=== PATIENT | female | born 1935 | race Caucasian/White ===

== ENCOUNTER 2016-10-18 05:06 | Inpatient (IN) | payer OTHER ==
[2016-09-27 12:57] VITALS: BMI 31.0
--- NOTE | 2016-09-27 13:49 | PAT Medication Instructions ---
Service Date Sep 27, 2016. Current Home Medication List Acetaminophen (Tylenol), 500 MG PO PRN Albuterol Hfa (Ventolin Hfa), 2-4 PUFFS INH Q6H PRN for WHEEZING Brimonidine Tartrate (Alphagan P Oph), 1 DROP OP BID Calcitriol (Rocaltrol Cap), 0.25 MCG PO 3XWEEK Cholecalciferol (Vitamin D3), 1 TAB PO QPM Cranberry (Vaccinium Macrocarp (Cranberry), 500 MG PO QAM Diltiazem Hcl Ext Rel (Tiazac), 120 MG PO QAM Ferrous Sulfate (Kp Ferrous Sulfate), 1 TAB PO QPM Furosemide (Lasix), 40 MG PO QAM Gabapentin (Neurontin), 300 MG PO BID Glipizide (Glipizide Er), 1 TAB PO QAM Insulin Glargine (Lantus), 10 UNITS INJ HS Levothyroxine Sodium (Levothyroxine Sodium), 1 TAB PO QAM Magnesium Oxide (Mag-Ox), 400 MG PO QAM Metoprolol Succ (Toprol Xl) (Toprol-Xl ), 100 MG PO QAM Montelukast Sodium (Montelukast Sodium), 1 TAB PO HS Multivitamin (Multivitamin), 1 TAB PO QPM Pantoprazole (Protonix), 20 MG PO QAM Potassium Chloride Pwd (Klor-Con Pwd), 20 MEQ PO BID Pravastatin (Pravachol ), 40 MG PO HS Prednisone (Prednisone), 5 MG PO QAM Sulfamethoxazole-Trimethoprim (Bactrim Ds 800MG/160MG), 1 TAB PO BID Valsartan (Diovan), 160 MG PO QAM Warfarin Sod (Jantoven), 1.25 MG PO QPM [Lidocaine 5%], 1 DOSE TOP PRN [Nystatin Powd], 1 DOSE TOP TID PRN for de alcholizer Instructions For Your Scheduled Surgery Sulfamethoxazole-Trimethoprim (Bactrim Ds 800MG/160MG), 1 TAB PO BID (to be completed prior to surgery) - Check with surgeon/grocery supervisor/coumadin clinic for instructions: Warfarin Sod (Jantoven), 1.25 MG PO QPM - Hold the following medications 2 weeks prior to surgery: Cranberry (Vaccinium Macrocarp (Cranberry), 500 MG PO QAM - Hold the following medications 24 hours prior to surgery: [Lidocaine 5%], 1 DOSE TOP PRN [Nystatin Powd], 1 DOSE TOP TID PRN for RN - Hold the following medications the morning of surgery: Valsartan (Diovan), 160 MG PO QAM Potassium Chloride Pwd (Klor-Con Pwd), 20 MEQ PO BID Magnesium Oxide (Mag-Ox), 400 MG PO QAM Glipizide (Glipizide Er), 1 TAB PO QAM Ferrous Sulfate (Kp Ferrous Sulfate), 1 TAB PO QPM Furosemide (Lasix), 40 MG PO QAM Calcitriol (Rocaltrol Cap), 0.25 MCG PO 3XWEEK - Take the following medications the morning of surgery with a sip of water: Prednisone (Prednisone), 5 MG PO QAM Pantoprazole (Protonix), 20 MG PO QAM Metoprolol Succ (Toprol Xl) (Toprol-Xl ), 100 MG PO QAM Levothyroxine Sodium (Levothyroxine Sodium), 1 TAB PO QAM Gabapentin (Neurontin), 300 MG PO BID Diltiazem Hcl Ext Rel (Tiazac), 120 MG PO QAM Brimonidine Tartrate (Alphagan P Oph), 1 DROP OP BID Acetaminophen (Tylenol), 500 MG PO PRN (if needed) Albuterol Hfa (Ventolin Hfa), 2-4 PUFFS INH Q6H PRN for WHEEZING (bring with you to hospital morning of surgery; use if needed) . - Take the following medications as scheduled the night before surgery: Potassium Chloride Pwd (Klor-Con Pwd), 20 MEQ PO BID Pravastatin (Pravachol ), 40 MG PO HS Multivitamin (Multivitamin), 1 TAB PO QPM Montelukast Sodium (Montelukast Sodium), 1 TAB PO HS Insulin Glargine (Lantus), 10 UNITS INJ HS Gabapentin (Neurontin), 300 MG PO BID Cholecalciferol (Vitamin D3), 1 TAB PO QPM Brimonidine Tartrate (Alphagan P Oph), 1 DROP OP BID Acetaminophen (Tylenol), 500 MG PO PRN (if needed) Albuterol Hfa (Ventolin Hfa), 2-4 PUFFS INH Q6H PRN for WHEEZING (if needed) If you have any questions please call us at [phone] or [phone] or [phone]
[2016-09-27 14:27] LABS: HEMATOCRIT 32.6 % (37-47); MEAN CELL VOLUME 86.5 fL (80-100); MEAN CORPUSCULAR HEMOGLOBIN 27.9 pg (25-34); MEAN CORPUSCULAR HGB CONC 32.2 g/dl (32-36); MEAN PLATELET VOLUME 9.8 fL (7.4-10.4); PLATELET COUNT 293 K/uL (130-400); RED BLOOD COUNT 3.77 M/uL (4.2-5.4); URINE APPEARANCE CLEAR (CLEAR); URINE BILIRUBIN NEG (NEG); URINE COLOR YELLOW; URINE NITRITE NEG (NEG); URINE SPECIFIC GRAVITY 1.015 (1.000-1.030); UROBILINOGEN NEG (NEG); WHITE BLOOD COUNT 12.32 K/uL (4.8-10.8); ZZUR CULT IF INDIC CLEAN CATCH NO
[2016-09-27 14:40] LABS: INR 2.1 (0.9-1.1); PARTIAL THROMBOPLASTIN RATIO 1.6; PROTHROMBIN TIME (PATIENT) 23.3 SECONDS (9.0-12.0)
--- NOTE | 2016-09-27 14:40 | DIAGNOSTIC IMAGING REPORT ---
CERVICAL SPINE 2 OR 3 VIEWS CLINICAL HISTORY: 80 years-old Female presenting with PREOP, RHEUMATOID ARTHRITIS. TECHNIQUE: Lateral radiographs of the neck were obtained in flexion, neutral, and extension positions. COMPARISON: None. FINDINGS: The C5 vertebral body is only partially seen nonvisualization of the C6 and C7 vertebral bodies on neutral positioning. This limits evaluation. Overall straightening of normal cervical lordosis. Mild vertebral body height loss of C5. Intervertebral disc height loss of C5-6. No significant change in alignment on flexion or extension views with overall limited movement. No change in the predental interval. No dynamic spondylolisthesis. No radiographic evidence of acute fracture or subluxation. No prevertebral soft tissue swelling. IMPRESSION: 1. Straightening of normal cervical lordosis. No subluxation on flexion or extension views. 2. Mild degenerative change at C5-6. Electronically signed by: Sunday Harrell M.D. 09/27/2016 2:38 PM Dictated Date/Time: 09/27/2016 2:34 PM
[2016-09-27 14:41] LABS: MANUAL MICROSCOPIC REQUIRED? NO; REVIEW REQ? NO
[2016-09-27 14:54] LABS: BASO % 0.3 %; BASO ABS # 0.04 K/uL (0-0.2); COMPLETE YES; EOS % 0.7 %; IG% 0.2 %; LYMPH ABS # 1.48 K/uL (1.2-3.4); MONO % 4.3 %; NEUT % 82.5 %
[2016-09-27 15:15] LABS: BUN/CREATININE RATIO 17.2 (10-20); CALCIUM 9.3 mg/dl (8.5-10.1); CREATININE 2.4 mg/dl (0.60-1.20); POTASSIUM 6.1 mmol/L (3.5-5.1)
[2016-09-28 06:56] LABS: ESTIMATED AVERAGE GLUCOSE 186 mg/dl; HA1C FLAG Normal (Normal)
--- NOTE | 2016-10-17 15:26 | HISTORY & PHYSICAL EXAMINATION ---
DATE OF ADMISSION: 10/18/2016 CHIEF COMPLAINT: Left hip pain. HISTORY OF PRESENT ILLNESS: This is an 80-year-old female patient of Dr. Wasserman'neida complaining of chronic left hip pain, longstanding, now progressively getting worse. The patient has failed conservative treatment including the use of Tylenol. She cannot use narcotics and anti-inflammatories due to her kidney disease. She also has failed the use of a cane. The patient has been diagnosed with end-stage osteoarthritis per clinical and radiographic exams. The patient wishes to proceed with a left total hip arthroplasty. PAST MEDICAL HISTORY: Hypertension, hypercholesterolemia, one episode of atrial fibrillation stable now, asthma as a child, sleep apnea with the use of CPAP. She has a history of mini stroke in 1995, diabetes mellitus with insulin, rheumatoid arthritis, osteoarthritis, sciatica, acid reflux, obesity, kidney stones, stage III kidney disease. SOCIAL HISTORY: She was a lifelong smoker, quit in 1993, nondrinker. PAST SURGICAL HISTORY: Hysterectomy, appendectomy and left knee replacement. REVIEW OF SYSTEMS: The patient complains of chronic left hip pain. Otherwise, denies any shortness of breath, chest pain, nausea, vomiting or joint complaints. FAMILY HISTORY: Noncontributory. MEDICATIONS: Bactrim b.i.d., tramadol as needed, calcitriol 0.25 mg daily, ferrous sulfate 325 mg daily, prednisone 5 mg 1-1/2 tablet daily through the end of August and then 1 tablet daily after August, Lidoderm 5% patch topically to affected area as needed, potassium chloride 20 mEq b.i.d., Coumadin 2.5 mg take 1-1/2 tablets daily and as directed by Coumadin clinic, valsartan 320 mg 1/2 tablet daily, Lantus 10 units under the skin at bedtime, glipizide 10 mg 30 minutes before a meal, furosemide 40 mg daily, Pravachol 40 mg at bedtime, diltiazem 120 mg q. daily, cranberry 500 mg daily, Levoxyl 50 mcg daily, Neurontin 300 mg b.i.d., metoprolol 100 mg daily, Protonix 20 mg daily, Singulair 10 mg at bedtime, Nystatin to affected areas 3 times daily topically, Flonase 50 mcg per ACT 2 sprays in each nostril daily, insulin pen daily with Lantus, vitamin B12 100 mcg daily, magnesium 400 mg daily, Alphagan 0.15% ophthalmic solution 1 drop both eyes b.i.d. ALLERGIES: NOVOCAIN, LEVAQUIN, DEMEROL, STEROID SHOTS, lefunomide, NARCOTICS, ORAL NARCOTICS, TORADOL. PHYSICAL EXAMINATION: GENERAL: Well-developed, well-nourished 80-year-old female in no acute distress. She is alert and oriented x3 and pleasant. HEAD, EYES, EARS, NOSE, AND THROAT: Normocephalic, atraumatic. Extraocular motions are intact. Pupils are equal and reactive to light. HEART: Regular rate and rhythm, no murmurs appreciated. LUNGS: Clear. ABDOMEN: Soft, nontender, bowel sounds are present. EXTREMITIES: Left hip reveals pain with passive range of motion as well as log rolling. The patient has 5/5 strength with pain. Neurologically and neurovascularly intact in his left lower extremity. DIAGNOSES: Left hip end-stage osteoarthritis, history of hypertension, hypercholesterolemia, atrial fibrillation that is stable, asthma as a child, sleep apnea with the use of CPAP, history of transient ischemic attack, diabetes mellitus with insulin, rheumatoid arthritis, osteoarthritis, sciatica, acid reflux, obesity, history of kidney stones and stage III kidney disease. PLAN: The patient was advised of her diagnosis. Indications, risks, benefits, and postop course have all been reviewed. The patient wishes to proceed with a left total hip arthroplasty. Necessary consent forms, preoperative testing and clearances will be obtained. [facility]ENTERPrasad
[2016-10-18] VITALS (9 sets, daily range): BP systolic 115–164; BP diastolic 58–84; PULSE 59–81; TEMP 36.2–36.9; O2SAT 93–100; Ht 167.6 cm; Wt 88.8 kg
[~2016-10-18] VITALS: Ht 167.6 cm; Wt 88.8 kg
[~2016-10-18 05:06] MED LIST: ACET-1256 PO; BRIM0.1S OP; CALC0.2510 PO; CHOL20007 PO; CRAN500C2 PO; DILT120C68 PO; DVN/160 PO; FERR1TAB13 PO; FRS/40 PO; GABA-113 PO; GLIP-199 PO; INSDGI INJ; LEVO50TA6 PO; LIDOCAINE 5% TOP; MAGN400T6 PO; METO1TAB69 PO; MONT1TAB5 PO; MULT-506 PO; NYSTATIN POWD TOP; PRAV20TA PO; PRED-301 PO; PRT/20 PO; SULF800T23 PO; VNTHFA/IN INH; WARF2.5T8 PO
[2016-10-18] MEDS ORDERED: HYDROCORTISONE SOD SUCCINATE 100 MG/2 ML VIAL IV SCH (06:00)
[2016-10-18] MEDS ORDERED: CEFAZOLIN 2000 MG/60 ML D5W 60 ML IV SCH (06:00)
[2016-10-18] MEDS ORDERED: ROPIVACAINE 5MG/ML 30 ML 150 MG, BUPIVACAINE/EPINEPHR 0.5% MPF 30 ML, KETAMINE HCL INJ ... INFIL SCH ×5 (06:00)
[2016-10-18] MEDS ORDERED: METOCLOPRAMIDE HCL 10 MG TAB PO SCH (06:00)
[2016-10-18] MEDS ORDERED: FAMOTIDINE 20 MG TAB PO SCH (06:00)
[2016-10-18] MEDS ORDERED: ACETAMINOPHEN 500 MG TAB PO SCH (06:00)
[2016-10-18] MEDS ORDERED: LACTATED RINGER'S 1000ML IV SCH (06:00)
[2016-10-18] MEDS ORDERED: CeleBREX 200 MG CAP PO SCH (06:00)
[2016-10-18] MEDS ORDERED: LACTATED RINGER'S 1000ML 1,000 ML IV SCH (06:00)
[2016-10-18] MEDS ORDERED: GABAPENTIN 300 MG CAP PO SCH (06:00)
[2016-10-18] MEDS ORDERED: BUPIVACAINE 0.5 % 5 MG/1 ML PF 10ML VIAL ONE (06:27)
[2016-10-18 06:30] LABS: PARTIAL THROMBOPLASTIN RATIO 1.1; PROTHROMBIN TIME (PATIENT) 10.6 SECONDS (9.0-12.0)
[2016-10-18] MEDS ORDERED: FENTANYL CITRATE INJ 50 MCG/1 ML 2 ML VIAL ONE (06:50)
[2016-10-18] MEDS ORDERED: MIDAZOLAM HCL 1 MG/ML 2ML VIAL ONE (06:50)
[2016-10-18] MEDS ORDERED: ORTHO JOINT ANESTHETIC ONE (07:03)
[2016-10-18] MEDS ORDERED: POVIDONE-IODINE OP SOLN 30 ML BTL ONE (07:04)
[2016-10-18] MEDS ORDERED: BACITRACIN 50000 UNIT VIAL ONE (07:04)
--- NOTE | 2016-10-18 07:26 | History & Physical Bridge Note ---
H&P Re-Evaluation Bridge Note: I have examined the patient, reviewed the History & Physical and in the interval since the performance of the History & Physical I have noted the following changes of clinical significance: No changes noted
[2016-10-18] MEDS ORDERED: PROPOFOL IV EMULSION 10 MG/ML 20 ML VIAL IV ONE (08:09)
[2016-10-18] MEDS ORDERED: EpHEDrine SULFATE 50MG/5ML SYR ONE (08:09)
[2016-10-18] MEDS ORDERED: ONDANSETRON INJ 2 MG/ML 2 ML VIAL IV PRN (08:45)
[2016-10-18] MEDS ORDERED: HYDROmorphone INJ 1 MG/ML SYR IV PRN (08:45)
[2016-10-18] MEDS ORDERED: ATROPINE SULFATE 0.1 MG/ML 5ML SYR IV PRN (08:45)
[2016-10-18] MEDS ORDERED: EpHEDrine SULFATE INJ 50 MG/ML AMP IV PRN (08:45)
[2016-10-18] MEDS ORDERED: MEPERIDINE HCL 25 MG/ML CARP IV PRN (08:45)
[2016-10-18] MEDS ORDERED: LABETALOL HCL IV 5 MG/ML 20ML IV PRN (08:45)
[2016-10-18] MEDS: FENTANYL CITRATE INJ 50 MCG/1 ML 2 ML VIAL IV PRN ×6 (10:19→10:44)
--- NOTE | 2016-10-18 10:21 | [facility] Post Operative Brief Note ---
Immediate Operative Summary Operative Date Oct 18, 2016. Pre-Operative Diagnosis Left Hip End-Stage Osteoarthritis Post-Operative Diagnosis Left Hip End-Stage Osteoarthritis Procedure(s) Performed Left Total Hip Arthroplasty Surgeon Dr. Wasserman Bar Machine Operator Multiple Spindle Surgeon(s) none Estimated Blood Loss 100 mL Findings djd oa hip impingement Specimens A: Left Femoral Head Drains 2 hemovac Anesthesia spinal sedation Complication(s) None Disposition Recovery Room / PACU
[2016-10-18] MEDS ORDERED: ALUMINUM/MAGNESIUM/SIMETH (MAALOX MAX) 30 ML UDC PO PRN (10:30)
[2016-10-18] MEDS ORDERED: MAGNESIUM HYDROXIDE SUSP 30 ML UDC PO PRN (10:30)
[2016-10-18] MEDS ORDERED: ZOLPIDEM TARTRATE 5 MG TAB PO PRN (10:30)
--- NOTE | 2016-10-18 11:10 | DIAGNOSTIC IMAGING REPORT ---
LEFT PELVIS/UNILATERAL HIP 1 VIEW CLINICAL HISTORY: Left hip osteoarthritis. COMPARISON: None FINDINGS: Alignment of the total left hip arthroplasty is anatomic. There is no periprosthetic fracture or unexpected radiopaque foreign body. Drains and skin amena are present. IMPRESSION: Expected findings following total left hip arthroplasty. Electronically signed by: Ayad Hutchins M.D. 10/18/2016 11:08 AM Dictated Date/Time: 10/18/2016 11:08 AM
--- NOTE | 2016-10-18 11:15 | Anesthesiology Progress Note ---
Anesthesia Post Op Note Date & Time Oct 18, 2016 at 11:15 Vital Signs Pain Intensity: 4 Vital Signs Past 12 Hours Date Time Temp Pulse Resp B/P (MAP) Pulse Ox O2 Delivery O2 Flow Rate FiO2 10/18/16 11:05 36.5 66 15 149/59 100 Nasal Cannula 4 10/18/16 10:55 66 26 137/52 95 Nasal Cannula 4 10/18/16 10:45 62 13 146/66 99 Nasal Cannula 2 10/18/16 10:35 57 14 161/68 97 Nasal Cannula 2 10/18/16 10:25 60 13 177/69 100 Oxymask 10 10/18/16 10:15 36.6 65 16 126/84 100 Oxymask 10 10/18/16 05:50 36.5 59 18 137/58 94 Room Air Notes Mental Status: alert / awake / arousable, participated in evaluation Pt Amnestic to Procedure: Yes Nausea / Vomiting: adequately controlled Pain: adequately controlled Airway Patency, RR, SpO2: stable & adequate BP & HR: stable & adequate Hydration State: stable & adequate Neuraxial Anesthesia: was administered, sensory block is resolving Anesthetic Complications: no major complications apparent
[2016-10-18] MEDS ORDERED: GLUCOSE 40% GEL 15 GM TUBE PO PRN (12:00)
[2016-10-18] MEDS ORDERED: DEXTROSE 50% 50 ML SYR IV PRN (12:00)
[2016-10-18] MEDS ORDERED: GLUCAGON FOR INJ 1 MG VIAL SQ PRN (12:00)
[2016-10-18] MEDS ORDERED: GLUCOSE 10 TABS/TUBE PO PRN (12:00)
[2016-10-18] MEDS: HYDROmorphone INJ 0.5 MG/0.5 ML SYR IV PRN (13:16)
[2016-10-18] MEDS ORDERED: NYSTATIN POWDER 15GM BTL EXT PRN (13:30)
[2016-10-18] MEDS ORDERED: LIDOCAINE HCL 5% OINT 30 GM TUBE EXT PRN (13:30)
[2016-10-18] MEDS: NSS + 20MEQ KCL 1000ML 1,000 ML IV SCH ×2 (13:40→22:37)
[2016-10-18] MEDS: HYDROCORTISONE IV 100 MG in SYRINGE 0 ML IV SCH ×2 (13:40→22:19)
[2016-10-18] MEDS: VALSARTAN 80 MG TAB PO SCH (13:41)
[2016-10-18] MEDS: ACETAMINOPHEN IV 1,000 MG in EMPTY BAG 0 ML IV SCH ×2 (13:41→22:19)
[2016-10-18] MEDS ORDERED: HYDROCORTISONE SOD SUCCINATE 100 MG/2 ML VIAL IM SCH (14:00)
[2016-10-18] MEDS ORDERED: ALBUTEROL HFA 8 GM INHALER INH PRN (14:00)
[2016-10-18] MEDS ORDERED: FUROSEMIDE 40 MG TAB PO SCH (14:00)
[2016-10-18] MEDS: CEFAZOLIN IV 2,000 MG in DEXTROSE 5% 50ML 50 ML IV SCH ×2 (15:57→23:39)
[2016-10-18] MEDS ORDERED: WARFARIN SOD 1.25 MG TAB PO SCH (16:00)
--- NOTE | 2016-10-18 16:31 | Medical Consult ---
Consultation Date of Consultation: Oct 18, 2016. Attending Physician: Moisés Wasserman M.D. History of Present Illness This is a 80yo F with a PMH of paroxysmal A fib (on coumadin), DM II, asthma, CKD III, HTN and OA who is POD#0 s/p L total hip arthroplasty. Patient with longstanding osteoarthritis, which failed conservative treatment measures. Had L ISMAEL performed by Dr. Waldron this morning. Patient is doing well post operatively. Denies lightheadedness, headache, palpitations, CP, SOB, N/V or weakness of extremities. States that pain is well controlled with current regimen. Past Medical/Surgical History Medical Problems: (1) Asthma Status: Chronic (2) Cardiomyopathy Status: Chronic (3) Carotid artery disease Status: Chronic (4) CKD (chronic kidney disease), stage III Status: Chronic (5) DM type 2 (diabetes mellitus, type 2) Status: Chronic (6) GERD (gastroesophageal reflux disease) Status: Chronic (7) GERD (gastroesophageal reflux disease) Status: Chronic (8) HTN (hypertension) Status: Chronic (9) Hyperlipidemia Status: Chronic (10) Hypothyroidism Status: Chronic (11) Hypothyroidism Status: Chronic (12) Multinodular goiter Status: Chronic (13) RASHIDA on CPAP Status: Chronic (14) Osteoarthritis Status: Chronic (15) Paroxysmal atrial fibrillation Status: Chronic (16) 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 (17) PMR (polymyalgia rheumatica) Status: Chronic (18) Pulmonary nodules Status: Chronic (19) Rheumatoid arthritis Status: Chronic (20) Transient cerebral ischemia Status: Chronic Surgical Problems: (1) H/O dilation and curettage Status: Chronic (2) History of carpal tunnel surgery Status: Chronic (3) History of hysterectomy Status: Chronic (4) S/P appendectomy Status: Chronic (5) S/P breast lumpectomy Status: Chronic (6) S/p partial removal of thymus gland Status: Chronic (7) S/P tonsillectomy and adenoidectomy Status: Chronic (8) Status post total knee replacement, left Status: Chronic Family History non contributory Social History Smoking Status: Former Smoker Allergies Coded Allergies: Procaine (Verified Allergy, Intermediate, FACIAL SWELLING, 10/18/16) Cortisone (Verified Allergy, Unknown, FACIAL FLUSHING WITH INJECTIONS, ) Ketorolac Tromethamine (Verified Allergy, Unknown, UNKNOWN, 10/18/16) Levofloxacin (Verified Allergy, Unknown, UNKNOWN, 10/18/16) Acetaminophen (Verified Adverse Reaction, Mild, NAUSEA AND VOMITING-PT DENIES, 10/18/16) Hydrocodone (Verified Adverse Reaction, Mild, NAUSEA AND VOMITING, 10/18/16 ) Meperidine (Verified Adverse Reaction, Mild, NAUSEA AND VOMITING/HEADACHE , 10/18/16) Oxycodone (Verified Adverse Reaction, Mild, NAUSEA AND VOMITING, 10/18/16) Home Medications Reported Home Medications Medications Dose Route/Sig Max Daily Dose Days Date Category Dose Instructions [Nystatin Powd] 1 Dose TOP TID PRN 09/27/16 Reported Vitamin D3 (Cholecalciferol) 2,000 Unit Tab 1 Tab PO QPM 90 09/27/16 Reported Multivitamin (Multivitamins) Tab 1 Tab PO QPM 09/27/16 Reported Ventolin Hfa (Albuterol) 200 Puffs/88167 Mcg Aers 2-4 Puffs INH Q6H PRN 09/27/16 Reported Montelukast Sodium 10 Mg Tab 1 Tab PO HS 90 09/27/16 Reported Protonix (Pantoprazole Sodium) 20 Mg Tab 20 Mg PO QAM 09/27/16 Reported Neurontin (Gabapentin) 300 Mg Cap 300 Mg PO BID 09/27/16 Reported Levothyroxine Sodium 50 Mcg Tab 1 Tab PO QAM 90 09/27/16 Reported Alphagan P Oph (Brimonidine Tartrate) 0.1 % Vicenta 1 Drop OP BID 09/27/16 Reported Cranberry (Cranberry (Vaccinium Macrocarp) 500 Mg Cap 500 Mg PO QAM 09/27/16 Reported Tiazac (Diltiazem HCl) 120 Mg Capcr 120 Mg PO QAM 09/27/16 Reported Pravachol (Pravastatin Sodium) 20 Mg Tab 40 Mg PO HS 09/27/16 Reported Lasix (Furosemide) 40 Mg Tab 20 Mg PO QAM 09/27/16 Reported per pt, pcp told her to take 40mg when feet look swollen Glipizide Er (Glipizide) 10 Mg Tab 1 Tab PO QAM 90 09/27/16 Reported Lantus (Insulin Glargine) 100 Unit/Ml Inj 10 Units INJ HS 09/27/16 Reported Toprol-Xl (Metoprolol Succinate) 100 Mg Tabcr 100 Mg PO QAM 09/27/16 Reported Diovan (Valsartan) 160 Mg Tab 160 Mg PO QAM 09/27/16 Reported Mag-Ox (Magnesium Oxide) 400 Mg Tab 400 Mg PO QAM 09/27/16 Reported Jantoven (Warfarin Sodium) 2.5 Mg Tab 1.25 Mg PO QPM 09/27/16 Reported [Lidocaine 5%] 1 Dose TOP PRN 09/27/16 Reported Prednisone 5 Mg Tab 5 Mg PO QAM 09/27/16 Reported Kp Ferrous Sulfate (Ferrous Sulfate) 325 Mg Tab 1 Tab PO QPM 30 09/27/16 Reported Rocaltrol Cap (Calcitriol) 0.25 Mcg Cap 0.25 Mcg PO 3XWEEK 09/27/16 Reported Saturday AM Tylenol (Acetaminophen) 500 Mg Tab 500 Mg PO PRN 09/27/16 Reported Current Inpatient Medications Current Inpatient Medications Medications (Trade) Dose Ordered Sig/Santos Route Start Time Stop Time Status Last Admin Dose Admin Cefazolin Sodium 60 ml @ 100 mls/hr PREOP IV 10/18/16 06:00 10/18/16 18:00 10/18/16 07:37 100 MLS/HR Acetaminophen (Tylenol Tab) 1,000 mg PREOP PO 10/18/16 06:00 10/18/16 18:00 10/18/16 06:16 1,000 MG Celecoxib (CeleBREX CAP) 200 mg PREOP PO 10/18/16 06:00 10/18/16 18:00 Future Hold Famotidine (Pepcid Tab) 20 mg PREOP PO 10/18/16 06:00 10/18/16 18:00 10/18/16 06:26 20 MG Gabapentin (Neurontin Cap) 300 mg PREOP PO 10/18/16 06:00 10/18/16 18:00 Metoclopramide HCl (Reglan Tab) 10 mg PREOP PO 10/18/16 06:00 10/18/16 18:00 10/18/16 06:17 10 MG Hydrocortisone Sodium Succinate (Solu-Cortef IV) 100 mg PREOP IV 10/18/16 06:00 10/18/16 18:00 10/18/16 07:20 100 MG Acetaminophen 1000 mg/Empty Bag 100 ml @ 400 mls/hr Q8H IV 10/18/16 14:00 10/19/16 13:59 10/18/16 13:41 400 MLS/HR Magnesium Hydroxide (Milk Of Magnesia Susp) 30 ml Q6H PRN PO 10/18/16 10:30 11/17/16 10:29 Docusate Sodium (coLACE CAP) 100 mg BID PO 10/18/16 21:00 11/17/16 20:59 Diphenhydramine HCl (Benadryl Cap) 25 mg Q8H PRN PO 10/18/16 10:30 11/17/16 10:29 Al Hydrox/Mg Hydrox/Simethicone (Maalox Max Susp) 15 ml Q4H PRN PO 10/18/16 10:30 11/17/16 10:29 Zolpidem Tartrate (Ambien Tab) 5 mg HSZ PRN PO 10/18/16 10:30 11/17/16 10:29 Ondansetron HCl (Zofran Inj) 4 mg Q6H PRN IV 10/18/16 10:30 11/17/16 10:29 Pantoprazole Sodium (Protonix Tab) 40 mg QAM PO 10/19/16 09:00 11/18/16 08:59 Cefazolin Sodium 2000 mg/Dextrose 60 ml @ 100 mls/hr Q8H IV 10/18/16 16:00 10/19/16 00:35 10/18/16 15:57 100 MLS/HR Tapentadol (Nucynta Er Tab) 50 mg BID PO 10/18/16 21:00 11/17/16 20:59 Diltiazem HCl (TIAzac CAP) 120 mg QAM PO 10/19/16 09:00 11/18/16 08:59 Gabapentin (Neurontin Cap) 300 mg BID PO 10/18/16 21:00 11/17/16 20:59 Levothyroxine Sodium (Synthroid Tab) 50 mcg DAILYBB PO 10/19/16 06:00 11/18/16 05:59 Magnesium Oxide (Mag-Ox Tab) 400 mg QAM PO 10/19/16 09:00 11/18/16 08:59 Metoprolol Succinate (Toprol Xl Tab) 100 mg QAM PO 10/19/16 09:00 11/18/16 08:59 Montelukast Sodium (Singulair Tab) 10 mg HS PO 10/18/16 21:00 11/17/16 20:59 Multivitamins (Multivitamin Tab) 1 tab QAM PO 10/19/16 09:00 11/18/16 08:59 Pravastatin Sodium (Pravachol Tab) 40 mg HS PO 10/18/16 21:00 11/17/16 20:59 Prednisone (PredniSONE TAB) 5 mg QAM PO 10/19/16 09:00 11/18/16 08:59 Valsartan (Diovan Tab) 160 mg QAM PO 10/18/16 14:00 11/17/16 13:59 10/18/16 13:41 160 MG Warfarin Sodium (Coumadin Tab) 1.25 mg DAILY@1600 PO 10/18/16 16:00 11/17/16 15:59 10/18/16 15:57 1.25 MG Miscellaneous Information (Order Awaiting Action) 1 ea QS N/A 10/18/16 16:00 11/17/16 15:59 Ferrous Sulfate (Feosol Tab) 325 mg QDD PO 10/18/16 17:45 11/17/16 17:44 Lidocaine HCl (Xylocaine Oint 5%) 1 appln DAILY PRN EXT 10/18/16 13:30 11/17/16 13:29 Nystatin (Mycostatin Powder) 1 appln TID PRN EXT 10/18/16 13:30 11/17/16 13:29 Insulin Aspart (novoLOG ASPART) SLIDING SCALE If C... ACHS SC 10/18/16 17:15 11/17/16 17:14 Glucose (Glucose 40% Gel) 15-30 GRAMS 15 GRAMS... UD PRN PO 10/18/16 12:00 11/17/16 11:59 Glucose (Glucose Chew Tab) 4-8 Tablets 4 Tabl... UD PRN PO 10/18/16 12:00 11/17/16 11:59 Dextrose (Dextrose 50% 50ML Syringe) 25-50ML OF 50% DW IV FOR... UD PRN IV 10/18/16 12:00 11/17/16 11:59 Glucagon (Glucagon Inj) 1 mg UD PRN SQ 10/18/16 12:00 11/17/16 11:59 Hydromorphone HCl (Dilaudid Inj) 0.5 mg Q4HWA PRN IV 10/18/16 12:30 11/01/16 12:29 10/18/16 13:16 0.5 MG Tapentadol (Nucynta Tab) . Q4H PRN PO 10/18/16 12:30 11/17/16 12:29 Potassium Chloride/Sodium Chloride 1,000 ml @ 100 mls/hr Q10H IV 10/18/16 13:00 11/17/16 12:59 10/18/16 13:40 100 MLS/HR Hydrocortisone Sodium Succinate 100 mg/Syringe 2 ml @ 4 mls/min Q8 IV 10/18/16 14:00 11/17/16 13:59 10/18/16 13:40 4 MLS/MIN Furosemide (Lasix Tab) 20 mg QAM PO 10/19/16 09:00 11/18/16 08:59 Albuterol (Ventolin Hfa Inhaler) 2 puffs Q6H PRN INH 10/18/16 14:00 11/17/16 13:59 Calcitriol (Rocaltrol Cap) 0.25 mcg DAILY PO 10/19/16 09:00 11/18/16 08:59 Review of Systems Constitutional- no fever; no weight loss Eyes- no acute visual changes ENT- no sinus drainage; no pharyngitis Pulmonary- no cough, no wheezing, no shortness of breath Cardiac- no chest pain, no palpitations, no orthopnea, no dependent edema GI- no nausea, no vomiting, no diarrhea, no melena, no hematochezia - no dysuria, no hematuria Musculoskeletal- (+) right hip pain Derm- no rashes, no new skin lesions, no changing skin lesions Hematologic- no unusual bruising, no unusual bleeding Lymphatics- no adenopathy Endocrine- no polyuria or polydipsia; no heat or cold intolerance Neuro- no headaches, no focal neurologic symptoms Psych- no anxiety, no depression Physical Exam Date Time Temp Pulse Resp B/P (MAP) Pulse Ox O2 Delivery O2 Flow Rate FiO2 10/18/16 15:00 36.3 79 20 115/64 (81) 100 Nasal Cannula 2.0 10/18/16 14:30 36.2 70 18 138/68 (91) 99 Nasal Cannula 2.0 10/18/16 13:34 36.5 72 19 152/82 (105) 99 Nasal Cannula 2.0 10/18/16 12:34 36.4 75 19 152/82 (105) 99 Nasal Cannula 2.0 10/18/16 12:08 36.2 73 20 154/84 (107) 100 Nasal Cannula 2.0 10/18/16 11:30 36.3 66 18 164/79 (107) 100 Nasal Cannula 2.0 10/18/16 11:30 100 Nasal Cannula 2.0 10/18/16 11:30 Nasal Cannula 2.0 10/18/16 11:15 71 23 164/67 100 Nasal Cannula 4 10/18/16 11:05 36.5 66 15 149/59 100 Nasal Cannula 4 10/18/16 10:55 66 26 137/52 95 Nasal Cannula 4 10/18/16 10:45 62 13 146/66 99 Nasal Cannula 2 10/18/16 10:35 57 14 161/68 97 Nasal Cannula 2 10/18/16 10:25 60 13 177/69 100 Oxymask 10 10/18/16 10:15 36.6 65 16 126/84 100 Oxymask 10 10/18/16 05:50 36.5 59 18 137/58 94 Room Air General Appearance: WD/WN (Resting comfortably in bed. SCDs in place. Conversational. ), no apparent distress Head: normocephalic, atraumatic Eyes: normal inspection ENT: normal ENT inspection, hearing grossly normal Neck: supple, no adenopathy, thyroid normal, trachea midline Respiratory/Chest: chest non-tender, lungs clear, normal breath sounds, no respiratory distress, no accessory muscle use Cardiovascular: regular rate, rhythm, no murmur, normal peripheral pulses Abdomen/GI: normal bowel sounds, non tender, soft, no organomegaly Back: normal inspection Extremities/Musculoskelatal: normal inspection (L hip with clean/dry bandage in place. Wound suction in place with sanginous fluid visualized.), no calf tenderness, normal capillary refill, + swelling (Trace edema of bilateral LE ( chronic)) Neurologic/Psych: no motor/sensory deficits, alert, normal mood/affect, oriented x 3 Skin: normal color, warm/dry Laboratory Results Last 24 Hours Test 10/18/16 05:34 10/18/16 05:54 10/18/16 10:17 Bedside Glucose 110 mg/dl 173 mg/dl Prothrombin Time 10.6 SECONDS Prothromb Time International Ratio 1.0 Activated Partial Thromboplast Time 28.7 SECONDS Partial Thromboplastin Ratio 1.1 Assessment & Plan This is a 80yo F with a PMH of paroxysmal A fib (on coumadin), DM II, asthma, CKD III, HTN and OA who is POD#0 s/p L total hip arthroplasty. L Hip osteoarthritis s/p L Total hip arthroplasty: -POD#[address] Wasserman -Pt is doing well post-operatively -Per ortho for pain control, wound care, anticoagulation and activities -Monitor H&H, continue incentive spirometry, PT/OT when appropriate A fib (on coumadin): -Rate controlled. Continue beta christen -Pt held coumadin since 10/12 prior to surgery -Per ortho, comfortable restarting coumadin this evening -Will check INR in AM DM II: -Hold home meds -SSI while in-patient -BG checks Q4; monitor Asthma: -Stable -Continue home inhalers as needed CKD III: -Stable -Avoid nephrotoxic agents -Check BMP in AM HTN: -Stable -Continue valsartan, diltiazem, metoprolol DONIS: -History of DONIS -Continue iron supplements -Monitor H/H RASHIDA: -Brought CPAP from home Hypothyroidism: -Continue synthroid DVT Ppx: SCDs, on coumadin Code status: FULL Dispo: Per ortho Thank you for this consultation. We will follow the patient with you during their hospital stay. You can reach a [facility]/10 via pager @ [phone]. ATTENDING ADDENDUM care coordinated with SONNY Hardwick delayed entry date of service as noted above please refer to her notes for full details, I agree with her notes patient seen and examined, records reviewed by myself as well on exam, patient seen laying in bed comfortable states pain under control denies chest pain, dyspnea, dizziness, nausea no other symptoms VS noted and reviewed oriented x 3, not in distress, speaks in sentences with no effort nor accessory muscle use normal rate, regular rhythm, no murmurs clear breath sounds bilaterally non distended, soft, nontender no bipedal edema, erythema, warmth no neuro deficits INR 1.1 ASSESSMENT/PLAN> POST OP RIGHT HIP SURGERY - stable overall monitor Hg CHRONIC A FIB - coumadin ok to be resumed per Ortho CHRONIC PREDNISONE USE - on Hydrocortisone IV will taper other diagnoses and plan of care as per SONNY Hardwick's notes Rodrigo Lake MD
[2016-10-18] MEDS: ONDANSETRON INJ 2 MG/ML 2 ML VIAL IV PRN (17:02)
--- NOTE | 2016-10-18 18:53 | [facility] Operative Report ---
Operative Report Operative Date Oct 18, 2016. Pre-Operative Diagnosis Left Hip End-Stage Osteoarthritis Post-Operative Diagnosis same Procedure(s) Performed Left total hip arthroplasty Surgeon Dr. Wasserman Gill Box Operator Surgeon(s) none Estimated Blood Loss 100 mL Findings Advanced osteoarthritis left hip with significant acetabular bone spurs causing significant impingement with pincer type impingement. Specimens A: Left Femoral Head Drains 2 hemovac Anesthesia spinal sedation Complication(s) None Disposition Recovery Room / PACU Indications Failed conservative management advanced osteoarthritis left hip Description of Procedure Patient was taken to the operating room and anesthetized under spinal anesthesia. Patient was placed supine on the operating table. Exam of the involved extremity demonstrated that the patient only had hip flexion and 90 and had no internal rotation of hip. Patient had shortening by about 5 mm.. The Patient was placed on a sacral pad the involved leg was placed on a foot pump to flex knee 90 and hip 60. A Jimenez-type approach was performed to the left hip. A longitudinal lateral incision was made over the left hip. The skin was incised sharply. The fat was divided down to the fascia. Subcutaneous bleeders are cauterized. The Trochanter bursa was resected. There was some trochanteric bursitis that appeared to be chronic. The gluteus medius was noted to be intact. A split was made in the gluteus medius muscle between the anterior 40% and posterior 60%. The minimus was divided longitudinally reflected off the underlying capsule. The capsule was incised down to the hip joint. Intra-articular findings demonstrated advanced osteoarthritis with large osteophytes most notable anterior medial superior but also some inferior. . An incision was made through the gluteus medius leaving a cuff of tendon for repair on the greater trochanter. The vastus lateralis was split longitudinally for about 3 cm. A muscular capsular flap was elevated off the hip. The hip was dislocated with use of bone out with flexion and external rotation. It was somewhat difficult to dislocate the hip due to the rimming osteophytes. The femoral neck cut was made approximately 15 mm proximal to the lesser trochanter in neutral anteversion. Head and neck fragment were removed. The femoral head demonstrated osteoarthritic changes but no major eburnated bone but some femoral neck osteophytes.. A self- retaining superior tractor was impacted into the ilium and a blunt Carina retractor was placed anteriorly a double angled inferior retractor was placed on the ishium. The acetabulum demonstrated no major acetabular wear but large rimming osteophytes.. The acetabular labrum was resected all osteophytes were resected soft tissue mass of her fossa was resected. An intracapsular release was performed. Some the capsule was resected for exposure. The first reamer was used to medialize reaming to the inner table and then sequential reamers for the acetabulum were used in 2 mm increments up to a size 52 mm diameter. I used the [employer] total hip arthroplasty system using a PSL type cup. Trial reduction demonstrated a 52 millimeter cup was the appropriate size and fit. The placement of the final implant was performed after irrigating the acetabulum with antibiotic solution with pulsatile lavage. The position of the cup was approximately 15 anteversion 45 abduction. Good fixation was performed. 2 screws were placed in the posterior superior quadrant for further fixation through the cup. The acetabular liner was impacted into position. The Trident X3 Poly 10 36 mm E acetabular liner was used. Retractors removed and attention was taken to the femur. The femur was exposed with flexion external rotation. Canal reamer was used followed by sequential broaches up to a size 7. This had a good fit and fill. Trial reduction was performed on 132 neck angle based on preoperative templating. A -5 neck length gave equal leg lengths and stable range of motion through full flexion flexion adduction and internal rotation and extension and external rotation. The trials removed and after irrigation again and the final implant was impacted which was the Accolade 2 size 7 stem with 132 neck angle. The Biolox 36 mm ceramic head size was used. After final implants replaced the reduction was noted to be stable. 2 drains were placed deep. These were brought out laterally and connected to Hemovac. The minimus was closed with interrupted [id number] # 1 Vicryl sutures. The medius was closed with transosseous #5 FiberWire sutures using Rafi Moses stitch technique. Lateral row soft tissue repair was performed with figure of 8 #2 FiberWire sutures. The medius split was closed with interrupted [id number] #1 Vicryl sutures. The vastus lateralis was closed with interrupted figure minimal Vicryl sutures. The fascia master was closed with interrupted figure of 8 number 1 Vicryl sutures. The fat was closed with large needle #2 Vicryl sutures to close the space followed by 2 -0 Vicryl sutures.. Skin was closed with amena sterile dressings were applied. The patient tolerated procedure well. I attest to the content of the Intraoperative Record and any orders documented therein. Any exceptions are noted below.
[2016-10-18] MEDS: FERROUS SULFATE 325 MG TAB PO SCH (19:34)
[2016-10-18] MEDS: INSULIN ASPART 100 UNITS/ML 3 ML PEN SC SCH ×2 (19:39→22:37)
[2016-10-18] MEDS: TAPENTADOL ER 50 MG TABCR PO SCH (21:00)
[2016-10-18] MEDS: MONTELUKAST SOD 10 MG TAB PO SCH (22:18)
[2016-10-18] MEDS: DOCUSATE SODIUM 100 MG CAP PO SCH (22:18)
[2016-10-18] MEDS: PRAVASTATIN SOD 20 MG TAB PO SCH (22:19)
[2016-10-18] MEDS: GABAPENTIN 300 MG CAP PO SCH (22:20)
[2016-10-18] MEDS ORDERED: INSULIN GLARGINE SOLOSTAR 100 UNITS/ML 3 ML PEN SQ ONE (22:25)
[2016-10-19] VITALS (8 sets, daily range): BP systolic 126–150; BP diastolic 56–86; PULSE 67–83; TEMP 36.6–36.8; O2SAT 96–100
[2016-10-19] MEDS: ACETAMINOPHEN IV 1,000 MG in EMPTY BAG 0 ML IV SCH (05:48)
[2016-10-19] MEDS: HYDROCORTISONE IV 100 MG in SYRINGE 0 ML IV SCH ×2 (05:48→13:57)
[2016-10-19] MEDS: LEVOTHYROXINE 50 MCG TAB PO SCH (05:48)
[2016-10-19 05:54] LABS: HEMATOCRIT 29.2 % (37-47); MEAN CELL VOLUME 87.2 fL (80-100); MEAN CORPUSCULAR HEMOGLOBIN 27.8 pg (25-34); MEAN CORPUSCULAR HGB CONC 31.8 g/dl (32-36); MEAN PLATELET VOLUME 9.4 fL (7.4-10.4); PLATELET COUNT 232 K/uL (130-400); RED BLOOD COUNT 3.35 M/uL (4.2-5.4); WHITE BLOOD COUNT 14.98 K/uL (4.8-10.8)
[2016-10-19 06:02] LABS: INR 1.1 (0.9-1.1); PROTHROMBIN TIME (PATIENT) 11.3 SECONDS (9.0-12.0)
[2016-10-19 06:41] LABS: BUN/CREATININE RATIO 13.8 (10-20); CALCIUM 8.3 mg/dl (8.5-10.1); CREATININE 1.5 mg/dl (0.60-1.20); POTASSIUM 4.3 mmol/L (3.5-5.1)
--- NOTE | 2016-10-19 08:10 | Anesthesiology Progress Note ---
Anesthesia Post Op Note Date & Time Oct 19, 2016 at 08:10 Vital Signs Vital Signs Past 12 Hours Date Time Temp Pulse Resp B/P (MAP) Pulse Ox O2 Delivery O2 Flow Rate FiO2 10/19/16 07:30 36.6 83 16 140/86 (104) 97 Room Air 10/19/16 03:27 36.8 81 18 147/68 (94) 100 CPAP 10/18/16 23:39 Room Air 10/18/16 23:15 36.9 81 18 132/60 (84) 98 CPAP Notes Mental Status: alert / awake / arousable, participated in evaluation Pt Amnestic to Procedure: Yes Nausea / Vomiting: adequately controlled Pain: adequately controlled Airway Patency, RR, SpO2: stable & adequate BP & HR: stable & adequate Hydration State: stable & adequate Neuraxial Anesthesia: was administered, sensory block resolved Anesthetic Complications: no major complications apparent
--- NOTE | 2016-10-19 08:19 | Orthopedic Progress Note ---
Orthopedic Progress Note Date of Service Oct 19, 2016. Subjective Post OP Day: 1 Reports: feeling well, Denies: chest pain, SOB, nausea / vomiting, light headedness, calf pain Objective calves soft nontender, N/V intact, hip located, dressing C/D/I (SILVERLON), A&O x3, toes mobile, hemovac drainage (250/150CC PER SHIFT) Date Time Temp Pulse Resp B/P (MAP) Pulse Ox O2 Delivery O2 Flow Rate FiO2 10/19/16 07:30 36.6 83 16 140/86 (104) 97 Room Air 10/19/16 03:27 36.8 81 18 147/68 (94) 100 CPAP 10/18/16 23:39 Room Air 10/18/16 23:15 36.9 81 18 132/60 (84) 98 CPAP 10/18/16 19:18 36.5 79 16 146/75 (98) 93 Room Air 10/18/16 15:30 Room Air 10/18/16 15:00 36.3 79 20 115/64 (81) 100 Nasal Cannula 2.0 10/18/16 14:30 36.2 70 18 138/68 (91) 99 Nasal Cannula 2.0 10/18/16 13:34 36.5 72 19 152/82 (105) 99 Nasal Cannula 2.0 10/18/16 12:34 36.4 75 19 152/82 (105) 99 Nasal Cannula 2.0 10/18/16 12:08 36.2 73 20 154/84 (107) 100 Nasal Cannula 2.0 10/18/16 11:30 36.3 66 18 164/79 (107) 100 Nasal Cannula 2.0 10/18/16 11:30 100 Nasal Cannula 2.0 10/18/16 11:30 Nasal Cannula 2.0 10/18/16 11:15 71 23 164/67 100 Nasal Cannula 4 10/18/16 11:05 36.5 66 15 149/59 100 Nasal Cannula 4 10/18/16 10:55 66 26 137/52 95 Nasal Cannula 4 10/18/16 10:45 62 13 146/66 99 Nasal Cannula 2 10/18/16 10:35 57 14 161/68 97 Nasal Cannula 2 10/18/16 10:25 60 13 177/69 100 Oxymask 10 10/18/16 10:15 36.6 65 16 126/84 100 Oxymask 10 Laboratory Results 24 Hours: Test 10/19/16 05:27 Hematocrit 29.2 % Hemoglobin 9.3 g/dL Prothromb Time International Ratio 1.1 Prothrombin Time 11.3 SECONDS Assessment & Plan Assessment: POD#1 SP LEFT ISMAEL Inhouse Planning Pain Management: PO Tylenol, other (NUCYNTA) Discharge Planning Discharge Planning: home with home health ([facility] WITH [facility] ON SATURDAY.)
[2016-10-19] MEDS: DOCUSATE SODIUM 100 MG CAP PO SCH ×2 (08:39→20:38)
[2016-10-19] MEDS: MAGNESIUM OXIDE 400 MG TAB PO SCH (08:40)
[2016-10-19] MEDS: VALSARTAN 80 MG TAB PO SCH (08:40)
[2016-10-19] MEDS: MULTIVITAMIN TAB PO SCH (08:41)
[2016-10-19] MEDS: TAPENTADOL ER 50 MG TABCR PO SCH ×2 (08:42→20:48)
[2016-10-19] MEDS: GABAPENTIN 300 MG CAP PO SCH ×2 (08:42→20:38)
[2016-10-19] MEDS: PANTOprazole SOD 40 MG TAB PO SCH (08:43)
[2016-10-19] MEDS: CALCITRIOL 0.25 MCG CAP PO SCH (08:44)
[2016-10-19] MEDS: DILTIAZEM HCL 120 MG EXT REL CAP PO SCH (08:45)
[2016-10-19] MEDS: METOPROLOL SUCC 50MG EXT REL TAB PO SCH (08:46)
[2016-10-19] MEDS: NSS + 20MEQ KCL 1000ML 1,000 ML IV SCH (09:00)
[2016-10-19] MEDS ORDERED: NON-FORMULARY MEDICATION (Pantoprazole (Protonix) 20 MG) PO SCH (09:00)
[2016-10-19] MEDS ORDERED: FUROSEMIDE 20 MG TAB PO SCH (09:00)
[2016-10-19] MEDS: INSULIN ASPART 100 UNITS/ML 3 ML PEN SC SCH ×4 (09:11→20:48)
[2016-10-19] MEDS ORDERED: NURSING VERBAL MED ORDER ONE (09:30)
[2016-10-19] MEDS: TAPENTADOL HCL 50 MG TAB PO PRN (12:09)
[2016-10-19] MEDS ORDERED: FUROSEMIDE 20 MG TAB PO ONE (14:37)
--- NOTE | 2016-10-19 14:52 | Discharge Instructions ---
Discharge Instructions Date of Service Oct 19, 2016. Admission Reason for Admission: Left Hip Osteoarthritis Discharge Discharge Diagnosis / Problem: sp left zoran Discharge Goals Goal(s): Decrease discomfort, Improve function, Increase independence Activity Recommendations Activity Limitations: per Instructions/Follow-up section . Instructions / Follow-Up Instructions / Follow-Up ACTIVITY RECOMMENDATIONS: SELF CARE INSTRUCTIONS AFTER TOTAL HIP REPLACEMENT Until the incision and soft tissues around your hip have healed, there is a possibility that the hip prosthesis could dislocate. A. Observe the following precautions to prevent dislocation: 1. Don't bend your hip greater than 90 degrees. 2. Avoid crossing your legs or ankles while standing or lying. 3. Sit with your feet placed 6 inches apart. 4. When sitting, keep your knees below your hips. Sit on a firm surface, avoid deep, soft chairs and couches. Use an elevated toilet seat in the bathroom. 5. Don't bend over at the waist. Use a long handled shoehorn and a sock aid to help you put on your shoes and socks. A health care liaison can help you potato picker objects that are too high or too low to reach. 6. Keep car riding to a minimum for at least one month after surgery. B. Your balance may be shaky for a while. Use crutches or a walker until directed by your doctor. C. Use hand rails when walking on stairs. D. Wear low heeled shoes with non-slip soles. E. Be sure that your floors are free of things that could trip you - throw rugs , electrical cords, small objects. Avoid wet and waxed floors, especially with crutches and canes. F. Try to walk several times a day with rest periods between. G. Continue with all the exercises taught to you in the hospital. Again, make walking a part of your daily routine. SPECIAL CARE INSTRUCTIONS: VERY IMPORTANT TO READ AND REVIEW A. You may still be at risk for phlebitis and blood clots. 1. Wear surgical stockings (GIO hose) for 2 weeks after surgery to improve circulation and reduce swelling. 3. High risk patients may be prescribed a stronger blood thinner if necessary. 4. If you are on Coumadin normally, your family doctor/polystyrene bead molder should monitor your blood work. Expect a phone call the day of or the day after bloodwork is drawn to adjust your dosage. RESUME COUMADIN, PLEASE FOLLOW WITH NORMAL COUMADIN CLINIC. B. You must take antibiotics before having dental work, bladder, bowel and other surgery. Your doctor will provide you with a permanent card to carry describing precautions. C. Call [facility] if you have a fever, redness or swelling around the incision, cloudy drainage from incision, or sudden increase in pain in your hip, not relieved by your regular pain medication. D. Please call the office at if you have any concerns or questions about your operation or recovery. * YOU MAY SHOWER, NO TUB BATHS UNTIL CLEARED BY YOUR DOCTOR. * WEAR GIO HOSE 20 HOURS PER DAY FOR 2 WEEKS. * YOU SHOULD USE A WALKER OR CRUTCHES FOR 2-4 WEEKS. THIS WILL HELP PREVENT STRAIN ON YOUR HIP MUSCLE AND ALLOW IT TO HEAL PROPERLY. YOU MAY WEAN TO A CANE TOLERATED. * MOST PATIENTS WILL HAVE HOME NURSING FOR THERAPY. IF YOU DECIDE TO DO OUTPATIENT PHYSICAL THERAPY, PLEASE SCHEDULE THIS 3 TIMES PER WEEK. * YOU MAY HAVE A LARGE, BAND-GABRIELLE LIKE DRESSING (SILVERON). THIS WILL REMAIN ON YOUR INCISION FOR 7 DAYS, THEN CAN BE REMOVED. IF INCISION IS LEAKING THROUGH DRESSING, PLEASE CALL THE OFFICE . FOLLOW UP VISIT: If appointment is not already scheduled: Please call [facility] to make a follow-up appointment for 2 weeks after your surgery at . Current Hospital Diet Patient's current hospital diet: Diabetes Type 2 Diet Discharge Diet Recommended Diet: Regular Diet Procedures Procedures Performed: Left Total Hip Arthroplasty Pending Studies Studies pending at discharge: no Laboratory Results Hemoglobin A1c Test 09/27/16 13:55 Range/Units Estimated Average Glucose 186 mg/dl Hemoglobin A1c 8.1 H 4.5-5.6 % Medical Emergencies . Who to Call and When: Medical Emergencies: If at any time you feel your situation is an emergency, please call 911 immediately. . Non-Emergent Contact Non-Emergency issues call your: Surgeon . "Provider Documentation" section prepared by Carolyne Garcia. . VTE Core Measure Inpt VTE Proph given/why not?: Warfarin (Coumadin)[place], SCD's [place] Drug Monitoring Program Search Results: patient reviewed within database, no issues identified
--- NOTE | 2016-10-19 15:38 | Progress Note ---
Medicine Progress Note Date & Time of Visit: Oct 19, 2016 at 15:33. (Caroline Hardwick ., P.A.-C.) Subjective Doing well today. Endorses some L hip pain but is able to participate in PT fully. Denies lightheadedness, CP, SOB, nausea/vomiting, calf pain or weakness in extremities. (Caroline Hardwick, P.A.-C.) Objective Last 8 Hrs Date Time Temp Pulse Resp B/P (MAP) Pulse Ox O2 Delivery O2 Flow Rate FiO2 10/19/16 11:45 36.7 78 16 130/78 (95) 96 Room Air 10/19/16 09:59 97 Room Air Physical Exam: General Appearance: WD/WN (Resting comfortably in bed. SCDs in place. Conversational. ), no apparent distress Head: normocephalic, atraumatic Eyes: normal inspection ENT: normal ENT inspection, hearing grossly normal Neck: supple, no adenopathy, thyroid normal, trachea midline Respiratory/Chest: chest non-tender, lungs clear, normal breath sounds, no respiratory distress, no accessory muscle use Cardiovascular: regular rate, rhythm, no murmur, normal peripheral pulses Abdomen/GI: normal bowel sounds, non tender, soft, no organomegaly Back: normal inspection Extremities/Musculoskelatal: normal inspection (L hip with clean/dry bandage in place. Wound suction in place with sanguinous fluid visualized.), no calf tenderness, normal capillary refill, + swelling (Trace edema of bilateral LE ( chronic)) Neurologic/Psych: no motor/sensory deficits, alert, normal mood/affect, oriented x 3 Skin: normal color, warm/dry Laboratory Results: Last 24 Hours Test 10/18/16 16:58 10/18/16 20:29 10/19/16 05:27 10/19/16 08:06 Bedside Glucose 270 mg/dl 289 mg/dl 182 mg/dl White Blood Count 14.98 K/uL Red Blood Count 3.35 M/uL Hemoglobin 9.3 g/dL Hematocrit 29.2 % Mean Corpuscular Volume 87.2 fL Mean Corpuscular Hemoglobin 27.8 pg Mean Corpuscular Hemoglobin Concent 31.8 g/dl RDW Standard Deviation 46.6 fL RDW Coefficient of Variation 14.8 % Platelet Count 232 K/uL Mean Platelet Volume 9.4 fL Prothrombin Time 11.3 SECONDS Prothromb Time International Ratio 1.1 Sodium Level 139 mmol/L Potassium Level 4.3 mmol/L Chloride Level 106 mmol/L Carbon Dioxide Level 25 mmol/L Anion Gap 8.0 mmol/L Blood Urea Nitrogen 21 mg/dl Creatinine 1.50 mg/dl Est Creatinine Clear Calc Drug Dose 33.0 ml/min Estimated GFR () 37.5 Estimated GFR (Non- 32.3 BUN/Creatinine Ratio 13.8 Random Glucose 155 mg/dl Calcium Level 8.3 mg/dl Test 10/19/16 12:01 Bedside Glucose 212 mg/dl (Caroline Hardwick, P.A.-C.) Assessment & Plan This is a 80yo F with a PMH of paroxysmal A fib (on coumadin), DM II, asthma, CKD III, HTN and OA who is POD#1 s/p L total hip arthroplasty. L Hip osteoarthritis s/p L Total hip arthroplasty: -POD#[address] Wasserman -Pt is doing well post-operatively -Per ortho for pain control, wound care, anticoagulation and activities -Monitor H&H, continue incentive spirometry, PT/OT when appropriate -Tapered steroid stress dose to 50mg Q12. Recommend discontinuing at discharge and resuming home prednisone A fib (on coumadin): -Rate controlled. Continue beta christen -Pt held coumadin since 10/12 prior to surgery -Per ortho, comfortable restarting coumadin this evening -INR of 1.1 today. Increased coumadin to 2.5mg -Plan to follow-up in coag clinic upon discharge. Discussed with patient DM II: -Hold home meds -SSI while in-patient -BG checks Q4; monitor Asthma: -Stable -Continue home inhalers as needed CKD III: -Stable. Cr at baseline of 1.5 -Avoid nephrotoxic agents -Check BMP in AM HTN: -Stable -Continue valsartan, diltiazem, metoprolol, lasix DONIS: -History of DONIS -Hgb of 9.3 today -Continue iron supplements -Monitor H/H RASHIDA: -Brought CPAP from home Hypothyroidism: -Continue synthroid DVT Ppx: SCDs, coumadin Code status: FULL Dispo: Per ortho Thank you for this consultation. We will follow the patient with you during their hospital stay. You can reach a member of the [facility] Hospitalist Team 01/10 via pager @ . Current Inpatient Medications: Current Inpatient Medications Medications (Trade) Dose Ordered Sig/Santos Route Start Time Stop Time Status Last Admin Dose Admin Magnesium Hydroxide (Milk Of Magnesia Susp) 30 ml Q6H PRN PO 10/18/16 10:30 11/17/16 10:29 Docusate Sodium (coLACE CAP) 100 mg BID PO 10/18/16 21:00 11/17/16 20:59 10/19/16 08:39 100 MG Diphenhydramine HCl (Benadryl Cap) 25 mg Q8H PRN PO 10/18/16 10:30 11/17/16 10:29 Al Hydrox/Mg Hydrox/Simethicone (Maalox Max Susp) 15 ml Q4H PRN PO 10/18/16 10:30 11/17/16 10:29 Zolpidem Tartrate (Ambien Tab) 5 mg HSZ PRN PO 10/18/16 10:30 11/17/16 10:29 Ondansetron HCl (Zofran Inj) 4 mg Q6H PRN IV 10/18/16 10:30 11/17/16 10:29 10/18/16 17:02 4 MG Pantoprazole Sodium (Protonix Tab) 40 mg QAM PO 10/19/16 09:00 11/18/16 08:59 10/19/16 08:43 40 MG Tapentadol (Nucynta Er Tab) 50 mg BID PO 10/18/16 21:00 11/17/16 20:59 10/19/16 08:42 50 MG Diltiazem HCl (TIAzac CAP) 120 mg QAM PO 10/19/16 09:00 11/18/16 08:59 10/19/16 08:45 120 MG Gabapentin (Neurontin Cap) 300 mg BID PO 10/18/16 21:00 11/17/16 20:59 10/19/16 08:42 300 MG Levothyroxine Sodium (Synthroid Tab) 50 mcg DAILYBB PO 10/19/16 06:00 11/18/16 05:59 10/19/16 05:48 50 MCG Magnesium Oxide (Mag-Ox Tab) 400 mg QAM PO 10/19/16 09:00 11/18/16 08:59 10/19/16 08:40 400 MG Metoprolol Succinate (Toprol Xl Tab) 100 mg QAM PO 10/19/16 09:00 11/18/16 08:59 10/19/16 08:46 100 MG Montelukast Sodium (Singulair Tab) 10 mg HS PO 10/18/16 21:00 11/17/16 20:59 10/18/16 22:18 10 MG Multivitamins (Multivitamin Tab) 1 tab QAM PO 10/19/16 09:00 11/18/16 08:59 10/19/16 08:41 1 TAB Pravastatin Sodium (Pravachol Tab) 40 mg HS PO 10/18/16 21:00 11/17/16 20:59 10/18/16 22:19 40 MG Valsartan (Diovan Tab) 160 mg QAM PO 10/18/16 14:00 11/17/16 13:59 10/19/16 08:40 160 MG Ferrous Sulfate (Feosol Tab) 325 mg QDD PO 10/18/16 17:45 11/17/16 17:44 10/18/16 19:34 325 MG Lidocaine HCl (Xylocaine Oint 5%) 1 appln DAILY PRN EXT 10/18/16 13:30 11/17/16 13:29 Nystatin (Mycostatin Powder) 1 appln TID PRN EXT 10/18/16 13:30 11/17/16 13:29 Insulin Aspart (novoLOG ASPART) SLIDING SCALE If C... ACHS SC 10/18/16 17:15 11/17/16 17:14 10/19/16 12:39 4 UNITS Glucose (Glucose 40% Gel) 15-30 GRAMS 15 GRAMS... UD PRN PO 10/18/16 12:00 11/17/16 11:59 Glucose (Glucose Chew Tab) 4-8 Tablets 4 Tabl... UD PRN PO 10/18/16 12:00 11/17/16 11:59 Dextrose (Dextrose 50% 50ML Syringe) 25-50ML OF 50% DW IV FOR... UD PRN IV 10/18/16 12:00 11/17/16 11:59 Glucagon (Glucagon Inj) 1 mg UD PRN SQ 10/18/16 12:00 11/17/16 11:59 Hydromorphone HCl (Dilaudid Inj) 0.5 mg Q4HWA PRN IV 10/18/16 12:30 11/01/16 12:29 10/18/16 13:16 0.5 MG Tapentadol (Nucynta Tab) . Q4H PRN PO 10/18/16 12:30 11/17/16 12:29 10/19/16 12:09 50 MG Albuterol (Ventolin Hfa Inhaler) 2 puffs Q6H PRN INH 10/18/16 14:00 11/17/16 13:59 Calcitriol (Rocaltrol Cap) 0.25 mcg DAILY PO 10/19/16 09:00 11/18/16 08:59 10/19/16 08:44 0.25 MCG Insulin Glargine (Lantus Solostar Pen) 10 units HS SQ 10/19/16 21:00 11/18/16 20:59 Brimonidine Tartrate (Alphagan-P 0.15% Oph Soln) 1 drops Q12 OPB 10/19/16 21:00 11/18/16 20:59 Hydrocortisone Sodium Succinate 50 mg/Syringe 1 ml @ 4 mls/min Q12H IV 10/20/16 02:00 11/19/16 01:59 Warfarin Sodium (Coumadin Tab) 2.5 mg DAILY@16 PO 10/19/16 16:00 11/18/16 15:59 Furosemide (Lasix Tab) 20 mg QAM PO 10/20/16 09:00 11/19/16 08:59 (Caroline Hardwick ., P.A.-C.) ATTENDING ADDENDUM delayed entry date of service 10/19/16 care coordinated with SONNY Hardwick please refer to her notes for full details, I agree with her notes patient seen and examined, records reviewed by myself as well on exam, patient seen resting in bedside chair main symptoms is right hip pain no chest pain, dyspnea, palpitations, dizziness no other symptoms VS noted and reviewed oriented x 2 , not in distress, speaks in sentences with no effort nor accessory muscle use normal rate, regular rhythm, no murmurs clear breath sounds bilaterally non distended, soft, nontender no bipedal edema, erythema, warmth no neuro deficits Hg 9.3 Crea 1.5 ASSESSMENT/PLAN> s/p RIGHT HIP SURGERY - stable overall post op monitor Hg CHRONIC ANTICOAGULATION ON COUMADIN A FIB - INR 1.1 increased coumadin - monitor INR other diagnoses and plan of care as per SONNY Hardwick's notes Rodrigo Lake MD (Rodrigo Lake MD)
[2016-10-19] MEDS: WARFARIN SOD 2.5 MG TAB PO SCH (15:51)
[2016-10-19] MEDS: FERROUS SULFATE 325 MG TAB PO SCH (17:58)
[2016-10-19] MEDS: PRAVASTATIN SOD 20 MG TAB PO SCH (20:38)
[2016-10-19] MEDS: BRIMONIDINE TARTRATE-P 0.15% 5 ML BTL OPB SCH (20:38)
[2016-10-19] MEDS: MONTELUKAST SOD 10 MG TAB PO SCH (20:39)
[2016-10-19] MEDS: INSULIN GLARGINE SOLOSTAR 100 UNITS/ML 3 ML PEN SQ SCH (20:41)
[2016-10-19] MEDS: HYDROmorphone INJ 0.5 MG/0.5 ML SYR IV PRN (23:14)
[2016-10-20] MEDS: HYDROCORTISONE IV 50 MG in SYRINGE 0 ML IV SCH ×2 (02:12→13:19)
[2016-10-20] MEDS: LEVOTHYROXINE 50 MCG TAB PO SCH (06:00)
[2016-10-20] MEDS: TAPENTADOL HCL 50 MG TAB PO PRN ×3 (06:00→23:42)
[2016-10-20 06:05] LABS: HEMATOCRIT 26.5 % (37-47); MEAN CELL VOLUME 86.9 fL (80-100); MEAN CORPUSCULAR HEMOGLOBIN 27.5 pg (25-34); MEAN CORPUSCULAR HGB CONC 31.7 g/dl (32-36); MEAN PLATELET VOLUME 9.4 fL (7.4-10.4); PLATELET COUNT 212 K/uL (130-400); RED BLOOD COUNT 3.05 M/uL (4.2-5.4)
[2016-10-20 06:12] LABS: INR 1.1 (0.9-1.1); PROTHROMBIN TIME (PATIENT) 12.3 SECONDS (9.0-12.0)
[2016-10-20 06:47] LABS: BUN/CREATININE RATIO 15.6 (10-20); CALCIUM 8.4 mg/dl (8.5-10.1); CREATININE 1.8 mg/dl (0.60-1.20); POTASSIUM 4.3 mmol/L (3.5-5.1)
[2016-10-20 07:02] VITALS: BP 129/74; PULSE 82; TEMP 36.7; O2SAT 95
--- NOTE | 2016-10-20 07:07 | Orthopedic Progress Note ---
Orthopedic Progress Note Date of Service Oct 20, 2016. Subjective Post OP Day: 2 Reports: feeling well, pain controlled w PO medications, Denies: complaints, chest pain, SOB, nausea / vomiting, light headedness, calf pain Objective calves soft nontender, N/V intact, capillary refill less than 2 sec., dressing C /D/I (silverlon intact), A&O x3, toes mobile Date Time Temp Pulse Resp B/P (MAP) Pulse Ox O2 Delivery O2 Flow Rate FiO2 10/19/16 23:20 Room Air 10/19/16 23:00 36.8 70 17 126/65 (85) 100 CPAP 10/19/16 16:15 97 Room Air 10/19/16 15:42 36.7 67 18 129/56 (80) 97 Room Air 10/19/16 11:45 36.7 78 16 130/78 (95) 96 Room Air 10/19/16 09:59 97 Room Air 10/19/16 09:39 79 97 10/19/16 07:30 36.6 83 16 140/86 (104) 97 Room Air 10/19/16 07:25 Room Air CPAP Laboratory Results 24 Hours: Test 10/20/16 05:35 Hematocrit 26.5 % Hemoglobin 8.4 g/dL Prothromb Time International Ratio 1.1 Prothrombin Time 12.3 SECONDS Assessment & Plan Assessment: POD#2 SP LEFT ISMAEL -plan for d/c home with HHPT when stable -on coumadin, INR today 1.1 -dvt proph with daniel/scd/coumadin A fib (on coumadin): -Rate controlled. Continue beta christen -Pt held coumadin since 10/12 prior to surgery, has since been restarted -Plan to follow-up in coag clinic upon discharge. Discussed with patient DM II: -Hold home meds, will resume on discharge -SSI while in-patient Asthma: -Stable -Continue home inhalers as needed CKD III: HTN: -Stable -Continue valsartan, diltiazem, metoprolol, lasix DONIS: -History of DONIS -Hgb of 8.4 today -Continue iron supplements -Monitor H/H RASHIDA: -Brought CPAP from home Hypothyroidism: -Continue synthroid Discharge Planning Discharge Planning: home with home health [facility] DVT Prophylaxis: TEDs, SCDs, Coumadin Therapy: Physical Therapy
[2016-10-20] MEDS: DOCUSATE SODIUM 100 MG CAP PO SCH ×2 (08:28→21:24)
[2016-10-20] MEDS: BRIMONIDINE TARTRATE-P 0.15% 5 ML BTL OPB SCH ×2 (08:28→21:23)
[2016-10-20] MEDS: VALSARTAN 80 MG TAB PO SCH (08:28)
[2016-10-20] MEDS: PANTOprazole SOD 40 MG TAB PO SCH (08:30)
[2016-10-20] MEDS: MULTIVITAMIN TAB PO SCH (08:30)
[2016-10-20] MEDS: MAGNESIUM OXIDE 400 MG TAB PO SCH (08:30)
[2016-10-20] MEDS: DILTIAZEM HCL 120 MG EXT REL CAP PO SCH (08:31)
[2016-10-20] MEDS: METOPROLOL SUCC 50MG EXT REL TAB PO SCH (08:31)
[2016-10-20] MEDS: CALCITRIOL 0.25 MCG CAP PO SCH (08:31)
[2016-10-20] MEDS: GABAPENTIN 300 MG CAP PO SCH ×2 (08:32→21:24)
[2016-10-20] MEDS: TAPENTADOL ER 50 MG TABCR PO SCH ×2 (08:37→21:24)
[2016-10-20] MEDS: INSULIN ASPART 100 UNITS/ML 3 ML PEN SC SCH ×4 (08:39→21:26)
[2016-10-20] MEDS ORDERED: FUROSEMIDE 20 MG TAB PO SCH (09:00)
[2016-10-20 09:26] VITALS: BP 119/51; PULSE 80; O2SAT 97
[2016-10-20 15:31] VITALS: BP 125/66; PULSE 78; TEMP 36.6; O2SAT 94
[2016-10-20 16:45] VITALS: O2SAT 94
[2016-10-20] MEDS: WARFARIN SOD 2.5 MG TAB PO SCH (17:04)
[2016-10-20] MEDS: FERROUS SULFATE 325 MG TAB PO SCH (17:15)
--- NOTE | 2016-10-20 18:56 | Progress Note ---
Medicine Progress Note Date & Time of Visit: Oct 20, 2016 at 18:51. Subjective patient sitting in bedside chair main symptom is right hip pain denies chest pain, dyspnea, dizziness no other symptoms Objective Last 8 Hrs Date Time Temp Pulse Resp B/P (MAP) Pulse Ox O2 Delivery O2 Flow Rate FiO2 10/20/16 16:45 94 Room Air 10/20/16 15:31 36.6 78 18 125/66 (85) 94 Room Air Physical Exam: General- oriented x 3, not in distress, speaks in sentences with no effort Eyes- EOMI, anicteric Neck- supple, no JVD Lungs- clear breath sounds bilaterally Heart- regular rhythm; no murmur, normal rate Abdomen- normal bowel sounds, soft, nontender Extremities- no pretibial edema, no calf tenderness Neuro- alert, oriented x 3;no gross deficits Skin- warm & dry Laboratory Results: Last 24 Hours Test 10/19/16 20:23 10/20/16 05:35 10/20/16 08:05 10/20/16 11:52 Bedside Glucose 250 mg/dl 164 mg/dl 181 mg/dl White Blood Count 14.70 K/uL Red Blood Count 3.05 M/uL Hemoglobin 8.4 g/dL Hematocrit 26.5 % Mean Corpuscular Volume 86.9 fL Mean Corpuscular Hemoglobin 27.5 pg Mean Corpuscular Hemoglobin Concent 31.7 g/dl RDW Standard Deviation 47.0 fL RDW Coefficient of Variation 14.8 % Platelet Count 212 K/uL Mean Platelet Volume 9.4 fL Prothrombin Time 12.3 SECONDS Prothromb Time International Ratio 1.1 Sodium Level 137 mmol/L Potassium Level 4.3 mmol/L Chloride Level 104 mmol/L Carbon Dioxide Level 27 mmol/L Anion Gap 6.0 mmol/L Blood Urea Nitrogen 28 mg/dl Creatinine 1.80 mg/dl Est Creatinine Clear Calc Drug Dose 27.5 ml/min Estimated GFR () 30.1 Estimated GFR (Non- 25.9 BUN/Creatinine Ratio 15.6 Random Glucose 138 mg/dl Calcium Level 8.4 mg/dl Test 10/20/16 17:13 Bedside Glucose 190 mg/dl Assessment & Plan This is a 80yo F with a PMH of paroxysmal A fib (on coumadin), DM II, asthma, CKD III, HTN and OA who is POD#1 s/p L total hip arthroplasty. L Hip osteoarthritis s/p L Total hip arthroplasty: -POD#[address] Wasserman - stable overall monitor Hg - d/c IV hydrocortisone change to usual Prednisone 5mg po daily A fib (on coumadin): -Rate controlled. Continue beta christen -INR of 1.1 Increased coumadin to 2.5mg -Plan to follow-up in coag clinic upon discharge coag clinic already notified DM II: -Hold home meds -SSI while in-patient Asthma: -Stable -Continue home inhalers as needed CKD III: -Stable. Cr at baseline of 1.5 -Avoid nephrotoxic agents -- crea 1.8 encouraged po fluid intake lasix held for tomorrow HTN: -Stable -Continue valsartan, diltiazem, metoprolol DONIS: -History of DONIS -Hgb 8 today -Continue iron supplements -Monitor H/H RASHIDA: -Brought CPAP from home Hypothyroidism: -Continue synthroid DVT Ppx: SCDs, coumadin Code status: FULL Dispo: Per ortho Thank you for this consultation. We will follow the patient with you during their hospital stay. You can reach a member of the [facility] Hospitalist Team 01/10 via pager @ . Current Inpatient Medications: Current Inpatient Medications Medications (Trade) Dose Ordered Sig/Santos Route Start Time Stop Time Status Last Admin Dose Admin Magnesium Hydroxide (Milk Of Magnesia Susp) 30 ml Q6H PRN PO 10/18/16 10:30 11/17/16 10:29 Docusate Sodium (coLACE CAP) 100 mg BID PO 10/18/16 21:00 11/17/16 20:59 10/20/16 08:28 100 MG Diphenhydramine HCl (Benadryl Cap) 25 mg Q8H PRN PO 10/18/16 10:30 11/17/16 10:29 Al Hydrox/Mg Hydrox/Simethicone (Maalox Max Susp) 15 ml Q4H PRN PO 10/18/16 10:30 11/17/16 10:29 Zolpidem Tartrate (Ambien Tab) 5 mg HSZ PRN PO 10/18/16 10:30 11/17/16 10:29 Ondansetron HCl (Zofran Inj) 4 mg Q6H PRN IV 10/18/16 10:30 11/17/16 10:29 10/18/16 17:02 4 MG Pantoprazole Sodium (Protonix Tab) 40 mg QAM PO 10/19/16 09:00 11/18/16 08:59 10/20/16 08:30 40 MG Tapentadol (Nucynta Er Tab) 50 mg BID PO 10/18/16 21:00 11/17/16 20:59 10/20/16 08:37 50 MG Diltiazem HCl (TIAzac CAP) 120 mg QAM PO 10/19/16 09:00 11/18/16 08:59 10/20/16 08:31 120 MG Gabapentin (Neurontin Cap) 300 mg BID PO 10/18/16 21:00 11/17/16 20:59 10/20/16 08:32 300 MG Levothyroxine Sodium (Synthroid Tab) 50 mcg DAILYBB PO 10/19/16 06:00 11/18/16 05:59 10/20/16 06:00 50 MCG Magnesium Oxide (Mag-Ox Tab) 400 mg QAM PO 10/19/16 09:00 11/18/16 08:59 10/20/16 08:30 400 MG Metoprolol Succinate (Toprol Xl Tab) 100 mg QAM PO 10/19/16 09:00 11/18/16 08:59 10/20/16 08:31 100 MG Montelukast Sodium (Singulair Tab) 10 mg HS PO 10/18/16 21:00 11/17/16 20:59 10/19/16 20:39 10 MG Multivitamins (Multivitamin Tab) 1 tab QAM PO 10/19/16 09:00 11/18/16 08:59 10/20/16 08:30 1 TAB Pravastatin Sodium (Pravachol Tab) 40 mg HS PO 10/18/16 21:00 11/17/16 20:59 10/19/16 20:38 40 MG Valsartan (Diovan Tab) 160 mg QAM PO 10/18/16 14:00 11/17/16 13:59 10/19/16 08:40 160 MG Ferrous Sulfate (Feosol Tab) 325 mg QDD PO 10/18/16 17:45 11/17/16 17:44 10/20/16 17:15 325 MG Lidocaine HCl (Xylocaine Oint 5%) 1 appln DAILY PRN EXT 10/18/16 13:30 11/17/16 13:29 Nystatin (Mycostatin Powder) 1 appln TID PRN EXT 10/18/16 13:30 11/17/16 13:29 Insulin Aspart (novoLOG ASPART) SLIDING SCALE If C... ACHS SC 10/18/16 17:15 11/17/16 17:14 10/20/16 18:21 4 UNITS Glucose (Glucose 40% Gel) 15-30 GRAMS 15 GRAMS... UD PRN PO 10/18/16 12:00 11/17/16 11:59 Glucose (Glucose Chew Tab) 4-8 Tablets 4 Tabl... UD PRN PO 10/18/16 12:00 11/17/16 11:59 Dextrose (Dextrose 50% 50ML Syringe) 25-50ML OF 50% DW IV FOR... UD PRN IV 10/18/16 12:00 11/17/16 11:59 Glucagon (Glucagon Inj) 1 mg UD PRN SQ 10/18/16 12:00 11/17/16 11:59 Hydromorphone HCl (Dilaudid Inj) 0.5 mg Q4HWA PRN IV 10/18/16 12:30 11/01/16 12:29 10/19/16 23:14 0.5 MG Tapentadol (Nucynta Tab) . Q4H PRN PO 10/18/16 12:30 11/17/16 12:29 10/20/16 13:23 100 MG Albuterol (Ventolin Hfa Inhaler) 2 puffs Q6H PRN INH 10/18/16 14:00 11/17/16 13:59 Calcitriol (Rocaltrol Cap) 0.25 mcg DAILY PO 10/19/16 09:00 11/18/16 08:59 10/20/16 08:31 0.25 MCG Insulin Glargine (Lantus Solostar Pen) 10 units HS SQ 10/19/16 21:00 11/18/16 20:59 10/19/16 20:41 10 UNITS Brimonidine Tartrate (Alphagan-P 0.15% Oph Soln) 1 drops Q12 OPB 10/19/16 21:00 11/18/16 20:59 10/20/16 08:28 1 DROPS Warfarin Sodium (Coumadin Tab) 2.5 mg DAILY@16 PO 10/19/16 16:00 11/18/16 15:59 10/20/16 17:04 2.5 MG Prednisone (PredniSONE TAB) 5 mg DAILY PO 10/21/16 09:00 11/20/16 08:59
[2016-10-20] MEDS: PRAVASTATIN SOD 20 MG TAB PO SCH (21:24)
[2016-10-20] MEDS: MONTELUKAST SOD 10 MG TAB PO SCH (21:24)
[2016-10-20] MEDS: INSULIN GLARGINE SOLOSTAR 100 UNITS/ML 3 ML PEN SQ SCH (21:27)
[2016-10-20 22:57] VITALS: BP 117/64; PULSE 80; TEMP 37.2; O2SAT 98
[2016-10-21] MEDS: HYDROmorphone INJ 0.5 MG/0.5 ML SYR IV PRN (03:02)
[2016-10-21] MEDS: LEVOTHYROXINE 50 MCG TAB PO SCH (05:30)
[2016-10-21] MEDS ORDERED: NCY50 PO (06:50)
[2016-10-21] MEDS ORDERED: ACET-1256 PO (06:50)
[2016-10-21] MEDS ORDERED: ONDA8TAB6 PO (06:50)
[2016-10-21] MEDS ORDERED: CLC100 PO (06:50)
[2016-10-21] MEDS ORDERED: NCYSR50 PO (06:50)
--- NOTE | 2016-10-21 06:52 | Orthopedic Progress Note ---
Orthopedic Progress Note Date of Service Oct 21, 2016. Subjective Post OP Day: 3 Reports: feeling well, pain controlled w PO medications, Denies: complaints, chest pain, SOB, nausea / vomiting, light headedness, calf pain Objective calves soft nontender, N/V intact, capillary refill less than 2 sec., dressing C /D/I, A&O x3, toes mobile Date Time Temp Pulse Resp B/P (MAP) Pulse Ox O2 Delivery O2 Flow Rate FiO2 10/20/16 23:30 CPAP 10/20/16 22:57 37.2 80 17 117/64 (81) 98 Room Air 10/20/16 16:45 94 Room Air 10/20/16 15:31 36.6 78 18 125/66 (85) 94 Room Air 10/20/16 09:26 80 97 10/20/16 08:16 Room Air 10/20/16 07:02 36.7 82 18 129/74 (92) 95 Room Air Laboratory Results 24 Hours: Test 10/21/16 04:44 Assessment & Plan Assessment: POD#3 SP LEFT ISMAEL -plan for d/c home with PT when stable, will await labs, poss dc today if stable -on coumadin, INR pending today -dvt proph with daniel/scd/coumadin A fib (on coumadin): -Rate controlled. Continue beta christen -Pt held coumadin since 10/12 prior to surgery, has since been restarted -Plan to follow-up in coag clinic upon discharge. Discussed with patient DM II: -Hold home meds, will resume on discharge -SSI while in-patient Asthma: -Stable -Continue home inhalers as needed CKD III: HTN: -Stable -Continue valsartan, diltiazem, metoprolol, lasix DONIS: -History of DONIS -Hgb of 8.4 today -Continue iron supplements -Monitor H/H RASHIDA: -Brought CPAP from home Hypothyroidism: -Continue synthroid Discharge Planning Discharge Planning: home with home health ([facility] ON SATURDAY.) DVT Prophylaxis: TEDs, SCDs, Coumadin Therapy: Physical Therapy
[2016-10-21 07:11] LABS: BASO % 0.2 %; BASO ABS # 0.03 K/uL (0-0.2); EOS % 0.3 %; HEMATOCRIT 27.9 % (37-47); IG% 0.4 %; LYMPH ABS # 2.46 K/uL (1.2-3.4); MEAN CELL VOLUME 86.9 fL (80-100); MEAN CORPUSCULAR HEMOGLOBIN 26.8 pg (25-34); MEAN CORPUSCULAR HGB CONC 30.8 g/dl (32-36); MEAN PLATELET VOLUME 9.1 fL (7.4-10.4); MONO % 7.5 %; NEUT % 75.6 %; PLATELET COUNT 224 K/uL (130-400); RED BLOOD COUNT 3.21 M/uL (4.2-5.4); WHITE BLOOD COUNT 15.38 K/uL (4.8-10.8)
[2016-10-21 07:17] VITALS: BP 94/56; PULSE 91; TEMP 37.1; O2SAT 99
[2016-10-21 07:28] LABS: INR 1.1 (0.9-1.1); PROTHROMBIN TIME (PATIENT) 11.8 SECONDS (9.0-12.0)
[2016-10-21 07:45] LABS: BUN/CREATININE RATIO 15.8 (10-20); CALCIUM 8.5 mg/dl (8.5-10.1); CREATININE 2.3 mg/dl (0.60-1.20); POTASSIUM 4.5 mmol/L (3.5-5.1)
[2016-10-21 07:56] LABS: COMPLETE YES; POLYCHROMASIA 1+; SPHEROCYTE OCCASIONAL
[2016-10-21] MEDS: METOPROLOL SUCC 50MG EXT REL TAB PO SCH (09:00)
[2016-10-21] MEDS: TAPENTADOL ER 50 MG TABCR PO SCH ×2 (09:25→20:32)
[2016-10-21] MEDS: MAGNESIUM OXIDE 400 MG TAB PO SCH (09:25)
[2016-10-21] MEDS: MULTIVITAMIN TAB PO SCH (09:26)
[2016-10-21] MEDS: VALSARTAN 80 MG TAB PO SCH (09:26)
[2016-10-21] MEDS: DILTIAZEM HCL 120 MG EXT REL CAP PO SCH (09:27)
[2016-10-21] MEDS: GABAPENTIN 300 MG CAP PO SCH ×2 (09:27→20:32)
[2016-10-21] MEDS: DOCUSATE SODIUM 100 MG CAP PO SCH ×2 (09:27→20:31)
[2016-10-21] MEDS: CALCITRIOL 0.25 MCG CAP PO SCH (09:27)
[2016-10-21] MEDS: BRIMONIDINE TARTRATE-P 0.15% 5 ML BTL OPB SCH ×2 (09:28→20:31)
[2016-10-21] MEDS: PANTOprazole SOD 40 MG TAB PO SCH (09:28)
[2016-10-21] MEDS: INSULIN ASPART 100 UNITS/ML 3 ML PEN SC SCH ×4 (09:33→20:42)
[2016-10-21 10:46] VITALS: BP 112/62; PULSE 100; O2SAT 94
[2016-10-21 15:32] VITALS: BP 109/68; PULSE 102; TEMP 37.5; O2SAT 98
[2016-10-21 16:20] VITALS: O2SAT 98
[2016-10-21] MEDS: WARFARIN SOD 2.5 MG TAB PO SCH (16:39)
[2016-10-21] MEDS: FERROUS SULFATE 325 MG TAB PO SCH (17:46)
[2016-10-21] MEDS: SODIUM CHLORIDE 0.9% 1000ML 1,000 ML IV SCH (19:57)
[2016-10-21] MEDS ORDERED: WARFARIN SOD 2.5 MG TAB PO ONE (20:00)
--- NOTE | 2016-10-21 20:17 | Progress Note ---
Medicine Progress Note Date & Time of Visit: Oct 21, 2016 at 20:14. Subjective patient seen resting in bedside chair states pain seems to be improved today denies dizziness, chest pain, palpitations, dyspnea no other symptoms Objective Last 8 Hrs Date Time Temp Pulse Resp B/P (MAP) Pulse Ox O2 Delivery O2 Flow Rate FiO2 10/21/16 16:20 98 Room Air 10/21/16 15:32 37.5 102 18 109/68 (82) 98 Room Air Physical Exam: General- oriented x 3, not in distress, speaks in sentences with no effort Eyes- anicteric Neck- no JVD Lungs- clear breath sounds bilaterally, no rales/wheezing Heart- regular rhythm; no murmur, normal rate Abdomen- normal bowel sounds, soft, nontender Extremities- no pretibial edema, no calf tenderness Neuro- alert, oriented x 3;no gross deficits Skin- warm & dry Laboratory Results: Last 24 Hours Test 10/20/16 20:38 10/21/16 06:49 10/21/16 08:27 10/21/16 12:09 Bedside Glucose 189 mg/dl 164 mg/dl 141 mg/dl White Blood Count 15.38 K/uL Red Blood Count 3.21 M/uL Hemoglobin 8.6 g/dL Hematocrit 27.9 % Mean Corpuscular Volume 86.9 fL Mean Corpuscular Hemoglobin 26.8 pg Mean Corpuscular Hemoglobin Concent 30.8 g/dl Platelet Count 224 K/uL Mean Platelet Volume 9.1 fL Neutrophils (%) (Auto) 75.6 % Lymphocytes (%) (Auto) 16.0 % Monocytes (%) (Auto) 7.5 % Eosinophils (%) (Auto) 0.3 % Basophils (%) (Auto) 0.2 % Neutrophils # (Auto) 11.63 K/uL Lymphocytes # (Auto) 2.46 K/uL Monocytes # (Auto) 1.16 K/uL Eosinophils # (Auto) 0.04 K/uL Basophils # (Auto) 0.03 K/uL RDW Standard Deviation 47.4 fL RDW Coefficient of Variation 14.8 % Immature Granulocyte % (Auto) 0.4 % Immature Granulocyte # (Auto) 0.06 K/uL Polychromasia 1+ Spherocytes OCCASIONAL Prothrombin Time 11.8 SECONDS Prothromb Time International Ratio 1.1 Sodium Level 134 mmol/L Potassium Level 4.5 mmol/L Chloride Level 100 mmol/L Carbon Dioxide Level 26 mmol/L Anion Gap 8.0 mmol/L Blood Urea Nitrogen 36 mg/dl Creatinine 2.30 mg/dl Est Creatinine Clear Calc Drug Dose 21.5 ml/min Estimated GFR () 22.4 Estimated GFR (Non- 19.3 BUN/Creatinine Ratio 15.8 Random Glucose 147 mg/dl Calcium Level 8.5 mg/dl Test 10/21/16 17:16 Bedside Glucose 201 mg/dl Assessment & Plan This is a 80yo F with a PMH of paroxysmal A fib (on coumadin), DM II, asthma, CKD III, HTN and OA who is POD#1 s/p L total hip arthroplasty. L Hip osteoarthritis s/p L Total hip arthroplasty: -POD#[address] Wasserman - stable overall monitor Hg - continue usual Prednisone 5mg po daily A fib (on coumadin): -Rate controlled. Continue beta christen -INR of 1.1 - total of coumadin 5mg po today check INR tomorrow -Plan to follow-up in coag clinic upon discharge coag clinic already notified ACUTE RENAL FAILURE ON CKD III: Cr at baseline of 1.5 increased to 2.3 -- hold Lasix -- IV NSS started DM II: -Hold home meds -SSI while in-patient Asthma: -Stable -Continue home inhalers as needed HTN: -Stable -Continue valsartan, diltiazem, metoprolol DONIS: -History of DONIS -Hgb 8 today -Continue iron supplements -Monitor H/H RASHIDA: -Brought CPAP from home Hypothyroidism: -Continue synthroid DVT Ppx: SCDs, coumadin ambulation Code status: FULL Dispo: Per ortho Thank you for this consultation. We will follow the patient with you during their hospital stay. You can reach a member of the [facility] Hospitalist Team 01/10 via pager @ . Current Inpatient Medications: Current Inpatient Medications Medications (Trade) Dose Ordered Sig/Santos Route Start Time Stop Time Status Last Admin Dose Admin Magnesium Hydroxide (Milk Of Magnesia Susp) 30 ml Q6H PRN PO 10/18/16 10:30 11/17/16 10:29 10/21/16 13:10 30 ML Docusate Sodium (coLACE CAP) 100 mg BID PO 10/18/16 21:00 11/17/16 20:59 10/21/16 09:27 100 MG Diphenhydramine HCl (Benadryl Cap) 25 mg Q8H PRN PO 10/18/16 10:30 11/17/16 10:29 Al Hydrox/Mg Hydrox/Simethicone (Maalox Max Susp) 15 ml Q4H PRN PO 10/18/16 10:30 11/17/16 10:29 Zolpidem Tartrate (Ambien Tab) 5 mg HSZ PRN PO 10/18/16 10:30 11/17/16 10:29 Ondansetron HCl (Zofran Inj) 4 mg Q6H PRN IV 10/18/16 10:30 11/17/16 10:29 10/18/16 17:02 4 MG Pantoprazole Sodium (Protonix Tab) 40 mg QAM PO 10/19/16 09:00 11/18/16 08:59 10/21/16 09:28 40 MG Tapentadol (Nucynta Er Tab) 50 mg BID PO 10/18/16 21:00 11/17/16 20:59 10/21/16 09:25 50 MG Diltiazem HCl (TIAzac CAP) 120 mg QAM PO 10/19/16 09:00 11/18/16 08:59 10/21/16 09:27 120 MG Gabapentin (Neurontin Cap) 300 mg BID PO 10/18/16 21:00 11/17/16 20:59 10/21/16 09:27 300 MG Levothyroxine Sodium (Synthroid Tab) 50 mcg DAILYBB PO 10/19/16 06:00 11/18/16 05:59 10/21/16 05:30 50 MCG Magnesium Oxide (Mag-Ox Tab) 400 mg QAM PO 10/19/16 09:00 11/18/16 08:59 10/21/16 09:25 400 MG Metoprolol Succinate (Toprol Xl Tab) 100 mg QAM PO 10/19/16 09:00 11/18/16 08:59 10/20/16 08:31 100 MG Montelukast Sodium (Singulair Tab) 10 mg HS PO 10/18/16 21:00 11/17/16 20:59 10/20/16 21:24 10 MG Multivitamins (Multivitamin Tab) 1 tab QAM PO 10/19/16 09:00 11/18/16 08:59 10/21/16 09:26 1 TAB Pravastatin Sodium (Pravachol Tab) 40 mg HS PO 10/18/16 21:00 11/17/16 20:59 10/20/16 21:24 40 MG Valsartan (Diovan Tab) 160 mg QAM PO 10/18/16 14:00 11/17/16 13:59 10/21/16 09:26 160 MG Ferrous Sulfate (Feosol Tab) 325 mg QDD PO 10/18/16 17:45 11/17/16 17:44 10/21/16 17:46 325 MG Lidocaine HCl (Xylocaine Oint 5%) 1 appln DAILY PRN EXT 10/18/16 13:30 11/17/16 13:29 Nystatin (Mycostatin Powder) 1 appln TID PRN EXT 10/18/16 13:30 11/17/16 13:29 Insulin Aspart (novoLOG ASPART) SLIDING SCALE If C... ACHS SC 10/18/16 17:15 11/17/16 17:14 10/21/16 17:45 4 UNITS Glucose (Glucose 40% Gel) 15-30 GRAMS 15 GRAMS... UD PRN PO 10/18/16 12:00 11/17/16 11:59 Glucose (Glucose Chew Tab) 4-8 Tablets 4 Tabl... UD PRN PO 10/18/16 12:00 11/17/16 11:59 Dextrose (Dextrose 50% 50ML Syringe) 25-50ML OF 50% DW IV FOR... UD PRN IV 10/18/16 12:00 11/17/16 11:59 Glucagon (Glucagon Inj) 1 mg UD PRN SQ 10/18/16 12:00 11/17/16 11:59 Hydromorphone HCl (Dilaudid Inj) 0.5 mg Q4HWA PRN IV 10/18/16 12:30 11/01/16 12:29 10/21/16 03:02 0.5 MG Tapentadol (Nucynta Tab) . Q4H PRN PO 10/18/16 12:30 11/17/16 12:29 10/20/16 23:42 100 MG Albuterol (Ventolin Hfa Inhaler) 2 puffs Q6H PRN INH 10/18/16 14:00 11/17/16 13:59 Calcitriol (Rocaltrol Cap) 0.25 mcg DAILY PO 10/19/16 09:00 11/18/16 08:59 10/21/16 09:27 0.25 MCG Insulin Glargine (Lantus Solostar Pen) 10 units HS SQ 10/19/16 21:00 11/18/16 20:59 10/20/16 21:27 10 UNITS Brimonidine Tartrate (Alphagan-P 0.15% Oph Soln) 1 drops Q12 OPB 10/19/16 21:00 11/18/16 20:59 10/21/16 09:28 1 DROPS Warfarin Sodium (Coumadin Tab) 2.5 mg DAILY@16 PO 10/19/16 16:00 11/18/16 15:59 10/21/16 16:39 2.5 MG Prednisone (PredniSONE TAB) 5 mg DAILY PO 10/21/16 09:00 11/20/16 08:59 10/21/16 09:26 5 MG Sodium Chloride 1,000 ml @ 100 mls/hr Q10H IV 10/21/16 19:30 11/20/16 19:29 10/21/16 19:57 100 MLS/HR Warfarin Sodium (Coumadin Tab) 2.5 mg 2000 ONCE PO 10/21/16 20:00 10/21/16 20:01
[2016-10-21] MEDS: MONTELUKAST SOD 10 MG TAB PO SCH (20:32)
[2016-10-21] MEDS: PRAVASTATIN SOD 20 MG TAB PO SCH (20:32)
[2016-10-21] MEDS: INSULIN GLARGINE SOLOSTAR 100 UNITS/ML 3 ML PEN SQ SCH (20:42)
[2016-10-21 22:08] VITALS: BP 96/58; PULSE 113; TEMP 37; O2SAT 93
[2016-10-21 22:57] VITALS: BP 108/62; PULSE 102; TEMP 37.2; O2SAT 95
[2016-10-21] MEDS: TAPENTADOL HCL 50 MG TAB PO PRN (23:29)
[2016-10-22] MEDS: SODIUM CHLORIDE 0.9% 1000ML 1,000 ML IV SCH ×2 (05:08→15:55)
[2016-10-22] MEDS: LEVOTHYROXINE 50 MCG TAB PO SCH (05:09)
[2016-10-22 06:16] LABS: MEAN CELL VOLUME 85.8 fL (80-100); MEAN CORPUSCULAR HEMOGLOBIN 28.4 pg (25-34); MEAN CORPUSCULAR HGB CONC 33.1 g/dl (32-36); MEAN PLATELET VOLUME 9.8 fL (7.4-10.4); PLATELET COUNT 253 K/uL (130-400); RED BLOOD COUNT 3.03 M/uL (4.2-5.4); WHITE BLOOD COUNT 16.37 K/uL (4.8-10.8)
[2016-10-22] MEDS: TAPENTADOL HCL 50 MG TAB PO PRN (06:35)
[2016-10-22 06:45] LABS: CALCIUM 8.6 mg/dl (8.5-10.1); CREATININE 2.6 mg/dl (0.60-1.20); POTASSIUM 4.4 mmol/L (3.5-5.1)
[2016-10-22 06:54] LABS: BASO % 0.1 %; BASO ABS # 0.02 K/uL (0-0.2); COMPLETE YES; EOS % 0.1 %; IG% 0.4 %; LYMPH % 6.4 %; LYMPH ABS # 1.05 K/uL (1.2-3.4); MONO % 6.6 %; NEUT % 86.4 %; SPHEROCYTE 1+
[2016-10-22 07:18] VITALS: BP 92/57; PULSE 118; TEMP 37.1; O2SAT 98
--- NOTE | 2016-10-22 07:43 | Orthopedic Progress Note ---
Orthopedic Progress Note Date of Service Oct 22, 2016. Subjective Post OP Day: 4 Reports: feeling well, Denies: chest pain, SOB, nausea / vomiting, light headedness, calf pain Additional Notes: PATIENT HAD AN ASSISTED FALL LAST NIGHT WHILE TRYING TO GET INTO THE CHAIR. SHE DENIES ANY INCREASED PAIN OR DIFFICULTY WALKING. HER BUN/CR CONTINUE TO RISE. SHE IS GETTING NSS BUT HER LUE IS SWOLLEN ? INFILTRATION. INR REMAINS AT 1.1 Objective calves soft nontender, N/V intact, hip located, dressing C/D/I (SILVERLON), A&O x3, toes mobile THIGH WITH MODERATE EDEMA AND ECCYMOSIS. LEFT UE WITH MODERATE EDEMA COMPARED TO THE RIGHT- WILL HAVE IV TEAM CHECK HER IV SITE. Date Time Temp Pulse Resp B/P (MAP) Pulse Ox O2 Delivery O2 Flow Rate FiO2 10/22/16 07:18 37.1 118 20 92/57 (69) 98 Room Air 10/21/16 23:59 Room Air 10/21/16 22:57 37.2 102 16 108/62 (77) 95 Room Air 10/21/16 22:08 37.0 113 17 96/58 (71) 93 Room Air 10/21/16 16:20 98 Room Air 10/21/16 15:32 37.5 102 18 109/68 (82) 98 Room Air 10/21/16 10:46 100 94 10/21/16 07:45 Room Air Laboratory Results 24 Hours: Test 10/22/16 05:15 White Blood Count 16.37 K/uL Red Blood Count 3.03 M/uL Hemoglobin 8.6 g/dL Hematocrit 26.0 % Mean Corpuscular Volume 85.8 fL Mean Corpuscular Hemoglobin 28.4 pg Mean Corpuscular Hemoglobin Concent 33.1 g/dl Platelet Count 253 K/uL Mean Platelet Volume 9.8 fL Neutrophils (%) (Auto) 86.4 % Lymphocytes (%) (Auto) 6.4 % Monocytes (%) (Auto) 6.6 % Eosinophils (%) (Auto) 0.1 % Basophils (%) (Auto) 0.1 % Neutrophils # (Auto) 14.13 K/uL Lymphocytes # (Auto) 1.05 K/uL Monocytes # (Auto) 1.08 K/uL Eosinophils # (Auto) 0.02 K/uL Basophils # (Auto) 0.02 K/uL Additional Notes: Item Value Date Time Blood Urea Nitrogen 36 mg/dl H 10/21/1649 Creatinine 2.30 mg/dl H # 10/21/1649 Assessment & Plan Assessment: POD#4 SP LEFT ISMAEL -plan for d/c home with HHPT when stable, will await MEDICAL EVAL RE: AM LABS -on coumadin, INR 1.1 -dvt proph with daniel/scd/coumadin A fib (on coumadin): -Rate controlled. Continue beta christen -Pt held coumadin since 10/12 prior to surgery, has since been restarted -Plan to follow-up in coag clinic upon discharge. Discussed with patient DM II: -Hold home meds, will resume on discharge -SSI while in-patient Asthma: -Stable -Continue home inhalers as needed CKD III: - BUN/CR CONTINUE TO RISE. - CONTINUE IVF, NEED IV TEAM TO CHECK SITE. -NO NSAIDS HTN: -Stable -Continue valsartan, diltiazem, metoprolol, lasix DONIS: -History of DONIS -Hgb STABLE -Continue iron supplements -Monitor H/H RASHIDA: -Brought CPAP from home Hypothyroidism: -Continue synthroid Inhouse Planning Pain Management: PO Tylenol, other (NUCYNTA) Discharge Planning Discharge Planning: home with home health ([facility] HOME WITH [facility] ON SATURDAY.) DVT Prophylaxis: TEDs, SCDs, Coumadin Therapy: Physical Therapy
[2016-10-22] MEDS: INSULIN ASPART 100 UNITS/ML 3 ML PEN SC SCH ×4 (08:36→21:33)
[2016-10-22] MEDS: BRIMONIDINE TARTRATE-P 0.15% 5 ML BTL OPB SCH ×2 (08:38→21:27)
[2016-10-22] MEDS: MAGNESIUM OXIDE 400 MG TAB PO SCH (08:40)
[2016-10-22] MEDS: GABAPENTIN 300 MG CAP PO SCH ×2 (08:40→21:27)
[2016-10-22 08:44] VITALS: BP_SYST 84; BP_SYST 89; BP_DIAS 55; BP_DIAS 64; PULSE 106
[2016-10-22] MEDS: METOPROLOL SUCC 50MG EXT REL TAB PO SCH (08:45)
[2016-10-22] MEDS: DILTIAZEM HCL 120 MG EXT REL CAP PO SCH (08:45)
[2016-10-22] MEDS: MULTIVITAMIN TAB PO SCH (08:46)
[2016-10-22] MEDS: CALCITRIOL 0.25 MCG CAP PO SCH (08:46)
[2016-10-22] MEDS: PANTOprazole SOD 40 MG TAB PO SCH (08:46)
[2016-10-22] MEDS: VALSARTAN 80 MG TAB PO SCH (08:46)
[2016-10-22] MEDS: DOCUSATE SODIUM 100 MG CAP PO SCH ×2 (08:47→21:27)
[2016-10-22] MEDS: TAPENTADOL ER 50 MG TABCR PO SCH (09:00)
[2016-10-22 10:40] VITALS: BP_SYST 104; BP_SYST 115; BP_DIAS 61; BP_DIAS 63; PULSE 108
[2016-10-22] MEDS ORDERED: TRAMADOL HCL 50 MG TAB PO PRN (11:00)
[2016-10-22 11:13] LABS: INR 1.1 (0.9-1.1); PROTHROMBIN TIME (PATIENT) 12.1 SECONDS (9.0-12.0)
--- NOTE | 2016-10-22 11:27 | Progress Note ---
Medicine Progress Note Date & Time of Visit: Oct 22, 2016 at 11:20. Subjective patient seen resting in bedside chair called by RN as patient seems confused at bedside, states patient seems incoherent this morning had a fall yesterday too apparently on exam, patient seems drowsy oriented x 2 answers simple questions appropriately denies headache, dizziness, nausea, chest pain, dyspnea pain level is not too bad no other symptoms Objective Last 8 Hrs Date Time Temp Pulse Resp B/P (MAP) Pulse Ox O2 Delivery O2 Flow Rate FiO2 10/22/16 10:40 108 115/63 (80) 104/61 (75) 10/22/16 08:44 106 89/55 (66) 84/64 (71) 10/22/16 07:18 37.1 118 20 92/57 (69) 98 Room Air Physical Exam: General- oriented x 1, not in distress, speaks in sentences with no effort, but drowsy Head- atraumatic Lungs- clear breath sounds bilaterally, no rales/wheezing Heart- regular rhythm; no murmur, normal rate Abdomen- normal bowel sounds, soft, nontender Extremities- no pretibial edema, no calf tenderness Neuro- alert, oriented x 1; drowsy, no gross deficits Skin- warm & dry Laboratory Results: Last 24 Hours Test 10/21/16 12:09 10/21/16 17:16 10/21/16 20:40 10/22/16 05:15 Bedside Glucose 141 mg/dl 201 mg/dl 215 mg/dl White Blood Count 16.37 K/uL Red Blood Count 3.03 M/uL Hemoglobin 8.6 g/dL Hematocrit 26.0 % Mean Corpuscular Volume 85.8 fL Mean Corpuscular Hemoglobin 28.4 pg Mean Corpuscular Hemoglobin Concent 33.1 g/dl Platelet Count 253 K/uL Mean Platelet Volume 9.8 fL Neutrophils (%) (Auto) 86.4 % Lymphocytes (%) (Auto) 6.4 % Monocytes (%) (Auto) 6.6 % Eosinophils (%) (Auto) 0.1 % Basophils (%) (Auto) 0.1 % Neutrophils # (Auto) 14.13 K/uL Lymphocytes # (Auto) 1.05 K/uL Monocytes # (Auto) 1.08 K/uL Eosinophils # (Auto) 0.02 K/uL Basophils # (Auto) 0.02 K/uL RDW Standard Deviation 46.7 fL RDW Coefficient of Variation 14.8 % Immature Granulocyte % (Auto) 0.4 % Immature Granulocyte # (Auto) 0.07 K/uL Spherocytes 1+ Sodium Level 130 mmol/L Potassium Level 4.4 mmol/L Chloride Level 96 mmol/L Carbon Dioxide Level 25 mmol/L Anion Gap 9.0 mmol/L Blood Urea Nitrogen 47 mg/dl Creatinine 2.60 mg/dl Est Creatinine Clear Calc Drug Dose 19.0 ml/min Estimated GFR () 19.3 Estimated GFR (Non- 16.6 BUN/Creatinine Ratio 18.0 Random Glucose 206 mg/dl Calcium Level 8.6 mg/dl Test 10/22/16 08:18 10/22/16 10:41 Bedside Glucose 205 mg/dl Prothrombin Time 12.1 SECONDS Prothromb Time International Ratio 1.1 Assessment & Plan This is a 80yo F with a PMH of paroxysmal A fib (on coumadin), DM II, asthma, CKD III, HTN and OA who is POD#1 s/p L total hip arthroplasty. L Hip osteoarthritis s/p L Total hip arthroplasty: -POD#[address] Wasserman - drowsy, confused likely from acute renal failure, on Nucynta and and Dilaudid management as noted above - continue usual Prednisone 5mg po daily Altered Mental Status likely from acute renal failure, on Nucynta and and Dilaudid - CT head ordered - d/c Nucynta and Dilaudid for now as GFR is only 19 - monitor Acute Renal Failure on CKD 3 - likely pre renal - increase IV fluids to 125mg/hr check Na at 3pm - hold Valsartan no NSAIDs, nephrotoxic agents - may need Nephro consult with no improved Leg Edema - INR subtherapeutic - check Doppler US legs start heparin q8h for DVT prophylaxis A fib (on coumadin): -Rate controlled. Continue beta christen -INR of 1.1 - repeat INR pending - may need coumadin 5mg po today -Plan to follow-up in coag clinic upon discharge coag clinic already notified DM II: -Hold home meds -SSI while in-patient Asthma: -Stable -Continue home inhalers as needed HTN: -Stable -Continue diltiazem, metoprolol DONIS: -History of DONIS -Hgb 8 today -Continue iron supplements -Monitor H/H RASHIDA: -Brought CPAP from home Hypothyroidism: -Continue synthroid DVT Ppx: SCDs, coumadin ambulation heparin Code status: FULL Dispo: Per ortho Thank you for this consultation. We will follow the patient with you during their hospital stay. You can reach a member of the [facility] Hospitalist Team 01/10 via pager @ . Current Inpatient Medications: Current Inpatient Medications Medications (Trade) Dose Ordered Sig/Santos Route Start Time Stop Time Status Last Admin Dose Admin Magnesium Hydroxide (Milk Of Magnesia Susp) 30 ml Q6H PRN PO 10/18/16 10:30 11/17/16 10:29 10/21/16 13:10 30 ML Docusate Sodium (coLACE CAP) 100 mg BID PO 10/18/16 21:00 11/17/16 20:59 10/22/16 08:47 100 MG Diphenhydramine HCl (Benadryl Cap) 25 mg Q8H PRN PO 10/18/16 10:30 11/17/16 10:29 Al Hydrox/Mg Hydrox/Simethicone (Maalox Max Susp) 15 ml Q4H PRN PO 10/18/16 10:30 11/17/16 10:29 Zolpidem Tartrate (Ambien Tab) 5 mg HSZ PRN PO 10/18/16 10:30 11/17/16 10:29 Ondansetron HCl (Zofran Inj) 4 mg Q6H PRN IV 10/18/16 10:30 11/17/16 10:29 10/18/16 17:02 4 MG Pantoprazole Sodium (Protonix Tab) 40 mg QAM PO 10/19/16 09:00 11/18/16 08:59 10/22/16 08:46 40 MG Diltiazem HCl (TIAzac CAP) 120 mg QAM PO 10/19/16 09:00 11/18/16 08:59 10/21/16 09:27 120 MG Gabapentin (Neurontin Cap) 300 mg BID PO 10/18/16 21:00 11/17/16 20:59 10/22/16 08:40 300 MG Levothyroxine Sodium (Synthroid Tab) 50 mcg DAILYBB PO 10/19/16 06:00 11/18/16 05:59 10/22/16 05:09 50 MCG Magnesium Oxide (Mag-Ox Tab) 400 mg QAM PO 10/19/16 09:00 11/18/16 08:59 10/22/16 08:40 400 MG Metoprolol Succinate (Toprol Xl Tab) 100 mg QAM PO 10/19/16 09:00 11/18/16 08:59 10/20/16 08:31 100 MG Montelukast Sodium (Singulair Tab) 10 mg HS PO 10/18/16 21:00 11/17/16 20:59 10/21/16 20:32 10 MG Multivitamins (Multivitamin Tab) 1 tab QAM PO 10/19/16 09:00 11/18/16 08:59 10/22/16 08:46 1 TAB Pravastatin Sodium (Pravachol Tab) 40 mg HS PO 10/18/16 21:00 11/17/16 20:59 10/21/16 20:32 40 MG Ferrous Sulfate (Feosol Tab) 325 mg QDD PO 10/18/16 17:45 11/17/16 17:44 10/21/16 17:46 325 MG Lidocaine HCl (Xylocaine Oint 5%) 1 appln DAILY PRN EXT 10/18/16 13:30 11/17/16 13:29 Nystatin (Mycostatin Powder) 1 appln TID PRN EXT 10/18/16 13:30 11/17/16 13:29 Insulin Aspart (novoLOG ASPART) SLIDING SCALE If C... ACHS SC 10/18/16 17:15 11/17/16 17:14 10/22/16 08:36 2 UNITS Glucose (Glucose 40% Gel) 15-30 GRAMS 15 GRAMS... UD PRN PO 10/18/16 12:00 11/17/16 11:59 Glucose (Glucose Chew Tab) 4-8 Tablets 4 Tabl... UD PRN PO 10/18/16 12:00 11/17/16 11:59 Dextrose (Dextrose 50% 50ML Syringe) 25-50ML OF 50% DW IV FOR... UD PRN IV 10/18/16 12:00 11/17/16 11:59 Glucagon (Glucagon Inj) 1 mg UD PRN SQ 10/18/16 12:00 11/17/16 11:59 Albuterol (Ventolin Hfa Inhaler) 2 puffs Q6H PRN INH 10/18/16 14:00 11/17/16 13:59 Calcitriol (Rocaltrol Cap) 0.25 mcg DAILY PO 10/19/16 09:00 11/18/16 08:59 10/22/16 08:46 0.25 MCG Insulin Glargine (Lantus Solostar Pen) 10 units HS SQ 10/19/16 21:00 11/18/16 20:59 10/21/16 20:42 10 UNITS Brimonidine Tartrate (Alphagan-P 0.15% Oph Soln) 1 drops Q12 OPB 10/19/16 21:00 11/18/16 20:59 10/22/16 08:38 1 DROPS Warfarin Sodium (Coumadin Tab) 2.5 mg DAILY@16 PO 10/19/16 16:00 11/18/16 15:59 10/21/16 16:39 2.5 MG Prednisone (PredniSONE TAB) 5 mg DAILY PO 10/21/16 09:00 11/20/16 08:59 10/22/16 08:46 5 MG Sodium Chloride 1,000 ml @ 125 mls/hr Q8H IV 10/21/16 19:30 11/20/16 19:29 10/22/16 05:08 100 MLS/HR Tramadol HCl (Ultram Tab) 50 mg Q12H PRN PO 10/22/16 11:00 11/21/16 10:59 Heparin Sodium (Porcine) (Heparin Sq 5000 Unit/0.5ml) 5,000 unit Q8 SQ 10/22/16 14:00 11/21/16 13:59
--- NOTE | 2016-10-22 11:53 | DIAGNOSTIC IMAGING REPORT ---
HEAD WITHOUT CONTRAST (CT) CT DOSE: 537.48 mGy.cm HISTORY: Mental status change altered mental status TECHNIQUE: Multiaxial CT images of the head were performed without the use of intravenous contrast. A dose lowering technique was utilized adhering to the principles of ALARA. Comparison: None. Findings: The paranasal sinuses and mastoid air cells are clear. The calvarium and skull base are intact. The ventricles and sulci are within normal limits. There is no mass, hematoma, midline shift, or acute infarct. Impression: No acute intracranial abnormality. The above report was generated using voice recognition software. It may contain grammatical, syntax or spelling errors. Electronically signed by: Steven Cabrera M.D. 10/22/2016 11:52 AM Dictated Date/Time: 10/22/2016 11:52 AM
--- NOTE | 2016-10-22 14:15 | Progress Note ---
Orthopedic SOAP Note Subjective Date of Service: Oct 22, 2016. Additional Notes: slightly confused having some hip pain not severe Objective hip located, CMS intact leg out to length located hip prosthetic and silvalon bandage coming loose ,no significant drainage. Date Time Temp Pulse Resp B/P (MAP) Pulse Ox O2 Delivery O2 Flow Rate FiO2 10/22/16 10:40 108 115/63 (80) 104/61 (75) 10/22/16 08:44 106 89/55 (66) 84/64 (71) 10/22/16 07:18 37.1 118 20 92/57 (69) 98 Room Air 10/21/16 23:59 Room Air 10/21/16 22:57 37.2 102 16 108/62 (77) 95 Room Air 10/21/16 22:08 37.0 113 17 96/58 (71) 93 Room Air 10/21/16 16:20 98 Room Air 10/21/16 15:32 37.5 102 18 109/68 (82) 98 Room Air Laboratory Results 24 Hours: Test 10/22/16 05:15 10/22/16 10:41 White Blood Count 16.37 K/uL Red Blood Count 3.03 M/uL Hemoglobin 8.6 g/dL Hematocrit 26.0 % Mean Corpuscular Volume 85.8 fL Mean Corpuscular Hemoglobin 28.4 pg Mean Corpuscular Hemoglobin Concent 33.1 g/dl Platelet Count 253 K/uL Mean Platelet Volume 9.8 fL Neutrophils (%) (Auto) 86.4 % Lymphocytes (%) (Auto) 6.4 % Monocytes (%) (Auto) 6.6 % Eosinophils (%) (Auto) 0.1 % Basophils (%) (Auto) 0.1 % Neutrophils # (Auto) 14.13 K/uL Lymphocytes # (Auto) 1.05 K/uL Monocytes # (Auto) 1.08 K/uL Eosinophils # (Auto) 0.02 K/uL Basophils # (Auto) 0.02 K/uL Prothromb Time International Ratio 1.1 Prothrombin Time 12.1 SECONDS Assessment POD#4 SP LEFT ISMAEL -plan for d/c home with HHPT when stable, will await MEDICAL EVAL RE: AM LABS -on coumadin, INR 1.1 -dvt proph with daniel/scd/coumadin A fib (on coumadin): -Rate controlled. Continue beta christen -Pt held coumadin since 10/12 prior to surgery, has since been restarted -Plan to follow-up in coag clinic upon discharge. Discussed with patient DM II: -Hold home meds, will resume on discharge -SSI while in-patient Asthma: -Stable -Continue home inhalers as needed CKD III: - BUN/CR CONTINUE TO RISE. - CONTINUE IVF, NEED IV TEAM TO CHECK SITE. -NO NSAIDS HTN: -Stable -Continue valsartan, diltiazem, metoprolol, lasix DONIS: -History of DONIS -Hgb STABLE -Continue iron supplements -Monitor H/H RASHIDA: -Brought CPAP from home Hypothyroidism: -Continue synthroid Plan d/c to rehab when renal failure stabilized per medicine,new dressing today.
--- NOTE | 2016-10-22 15:16 | DIAGNOSTIC IMAGING REPORT ---
ULTRASOUND BILATERAL LOWER EXTREMITY VENOUS CLINICAL HISTORY: Lower extremity edema. COMPARISON STUDY: No priors. TECHNIQUE: Real-time, grayscale, and color Doppler sonography of the deep veins of the right and left lower extremity was performed from the inguinal crease to the calf. Compression and augmentation were utilized. FINDINGS: There is no sonographic evidence of deep venous thrombosis identified in the right or left lower extremity. The common femoral, superficial femoral, and popliteal veins are patent and normally compressible bilaterally. The greater saphenous vein and the profunda femoris vein at the junction with the common femoral vein are clear in both legs. The visualized calf veins are patent bilaterally. A complex popliteal cyst on the right measures 5.3 x 2.1 x 4.3 cm. IMPRESSION: 1. There is no sonographic evidence of deep venous thrombosis identified in the right or left lower extremity. 2. Right-sided Polo's cyst. Electronically signed by: Adrian Juan M.D. 10/22/2016 3:14 PM Dictated Date/Time: 10/22/2016 3:14 PM
[2016-10-22 15:32] VITALS: BP 121/79; PULSE 109; TEMP 36.8; O2SAT 100
[2016-10-22] MEDS: HEPARIN SOD 5000 UNIT/0.5 ML CARP SQ SCH ×2 (15:54→21:35)
[2016-10-22] MEDS: WARFARIN SOD 2.5 MG TAB PO SCH (16:01)
[2016-10-22 17:11] LABS: BUN/CREATININE RATIO 17.6 (10-20); CALCIUM 8.3 mg/dl (8.5-10.1); CREATININE 2.9 mg/dl (0.60-1.20); POTASSIUM 4.9 mmol/L (3.5-5.1)
[2016-10-22] MEDS: FERROUS SULFATE 325 MG TAB PO SCH (18:08)
--- NOTE | 2016-10-22 19:44 | DIAGNOSTIC IMAGING REPORT ---
EXAMINATION: RENAL ULTRASOUND CLINICAL HISTORY: acute renal failure COMPARISON STUDY: None FINDINGS: The right kidney measures 10.2 cm. The left kidney measures 9.1 cm. There is no evidence of hydronephrosis. There are no renal masses. The bladder was empty at the time of scanning secondary to an indwelling Muir catheter. IMPRESSION : No renal abnormalities identified. No evidence of hydronephrosis. Electronically signed by: Deric Agudelo M.D. 10/22/2016 7:43 PM Dictated Date/Time: 10/22/2016 7:43 PM
[2016-10-22 20:51] LABS: BUN/CREATININE RATIO 17.9 (10-20); CALCIUM 8.1 mg/dl (8.5-10.1); CREATININE 2.8 mg/dl (0.60-1.20); POTASSIUM 4.8 mmol/L (3.5-5.1)
[2016-10-22] MEDS: MONTELUKAST SOD 10 MG TAB PO SCH (21:27)
[2016-10-22] MEDS: PRAVASTATIN SOD 20 MG TAB PO SCH (21:27)
[2016-10-22] MEDS: INSULIN GLARGINE SOLOSTAR 100 UNITS/ML 3 ML PEN SQ SCH (21:35)
[2016-10-22 21:51] LABS: URINE APPEARANCE CLOUDY (CLEAR); URINE BILIRUBIN NEG (NEG); URINE COLOR YELLOW; URINE EPITHELIAL CELL AUTO >30 /lpf (0-5); URINE NITRITE NEG (NEG); URINE PH 5.5 (4.5-7.5); URINE SPECIFIC GRAVITY 1.014 (1.000-1.030); UROBILINOGEN NEG (NEG)
[2016-10-22 21:54] LABS: MANUAL MICROSCOPIC REQUIRED? NO; REVIEW REQ? YES
[2016-10-22 22:07] LABS: URINE PATH CASTS 0-3 GRANULAR CASTS /lpf (0)
[2016-10-22 23:04] VITALS: BP 118/76; PULSE 114; TEMP 37; O2SAT 95
[2016-10-23] MEDS: LEVOTHYROXINE 50 MCG TAB PO SCH (05:29)
[2016-10-23] MEDS: HEPARIN SOD 5000 UNIT/0.5 ML CARP SQ SCH ×3 (05:32→21:19)
[2016-10-23 05:51] LABS: BASO % 0.1 %; BASO ABS # 0.01 K/uL (0-0.2); EOS % 1.5 %; HEMATOCRIT 23.4 % (37-47); IG% 0.3 %; LYMPH % 10.4 %; LYMPH ABS # 1.21 K/uL (1.2-3.4); MEAN CORPUSCULAR HEMOGLOBIN 28.3 pg (25-34); MEAN CORPUSCULAR HGB CONC 32.5 g/dl (32-36); MEAN PLATELET VOLUME 9.2 fL (7.4-10.4); MONO % 7.6 %; NEUT % 80.1 %; PLATELET COUNT 251 K/uL (130-400); RED BLOOD COUNT 2.69 M/uL (4.2-5.4); WHITE BLOOD COUNT 11.58 K/uL (4.8-10.8)
[2016-10-23 05:56] LABS: INR 1.2 (0.9-1.1); PROTHROMBIN TIME (PATIENT) 12.8 SECONDS (9.0-12.0)
[2016-10-23 06:14] LABS: BUN/CREATININE RATIO 18.9 (10-20); CALCIUM 8.3 mg/dl (8.5-10.1); CREATININE 2.5 mg/dl (0.60-1.20); POTASSIUM 4.9 mmol/L (3.5-5.1)
[2016-10-23 06:20] LABS: COMPLETE YES; POLYCHROMASIA 1+
[2016-10-23 06:24] LABS: THYROID STIMULATING HORMONE 0.639 uIu/ml (0.300-4.500)
[2016-10-23 07:29] VITALS: BP 138/64; PULSE 112; TEMP 36.6; O2SAT 96
[2016-10-23 07:37] VITALS: O2SAT 96
[2016-10-23] MEDS: DOCUSATE SODIUM 100 MG CAP PO SCH ×2 (08:40→20:47)
[2016-10-23] MEDS: BRIMONIDINE TARTRATE-P 0.15% 5 ML BTL OPB SCH ×2 (08:40→20:47)
[2016-10-23] MEDS: MAGNESIUM OXIDE 400 MG TAB PO SCH (08:41)
[2016-10-23] MEDS: MULTIVITAMIN TAB PO SCH (08:41)
[2016-10-23] MEDS: GABAPENTIN 300 MG CAP PO SCH ×2 (08:43→20:47)
[2016-10-23] MEDS: PANTOprazole SOD 40 MG TAB PO SCH (08:43)
[2016-10-23] MEDS: CALCITRIOL 0.25 MCG CAP PO SCH (08:44)
[2016-10-23] MEDS: DILTIAZEM HCL 120 MG EXT REL CAP PO SCH (08:44)
[2016-10-23] MEDS: METOPROLOL SUCC 50MG EXT REL TAB PO SCH (08:45)
--- NOTE | 2016-10-23 08:49 | Orthopedic Progress Note ---
Orthopedic Progress Note Date of Service Oct 23, 2016. Subjective Post OP Day: 5 Reports: feeling well, Denies: complaints, chest pain, SOB, nausea / vomiting, light headedness Additional Notes: Pt awake, alert. Oriented this AM. Just finished eating breakfast. Pain controlled at present. Asking that she not receive any narcotics at this time which she feels caused her confusion. Objective N/V intact, A&O x3, toes mobile Mild bilateral calf tenderness but no pinpoint tenderness. No edema. Carina's negative. Silverlon dressing with bloody drainage in window. Nursing relates blister formation at the edge of the dressing that was covered with gauze. Thigh swollen. Not tense. Date Time Temp Pulse Resp B/P (MAP) Pulse Ox O2 Delivery O2 Flow Rate FiO2 10/23/16 07:37 96 Room Air 10/23/16 07:30 Room Air 10/23/16 07:29 36.6 112 16 138/64 (88) 96 Room Air 10/22/16 23:04 37.0 114 16 118/76 (90) 95 CPAP 10/22/16 20:15 Room Air 10/22/16 15:32 36.8 109 18 121/79 (93) 100 Room Air 10/22/16 10:40 108 115/63 (80) 104/61 (75) 10/22/16 08:44 106 89/55 (66) 84/64 (71) Laboratory Results 24 Hours: Test 10/22/16 10:41 10/23/16 05:13 Prothromb Time International Ratio 1.1 1.2 Prothrombin Time 12.1 SECONDS 12.8 SECONDS White Blood Count 11.58 K/uL Red Blood Count 2.69 M/uL Hemoglobin 7.6 g/dL Hematocrit 23.4 % Mean Corpuscular Volume 87.0 fL Mean Corpuscular Hemoglobin 28.3 pg Mean Corpuscular Hemoglobin Concent 32.5 g/dl Platelet Count 251 K/uL Mean Platelet Volume 9.2 fL Neutrophils (%) (Auto) 80.1 % Lymphocytes (%) (Auto) 10.4 % Monocytes (%) (Auto) 7.6 % Eosinophils (%) (Auto) 1.5 % Basophils (%) (Auto) 0.1 % Neutrophils # (Auto) 9.27 K/uL Lymphocytes # (Auto) 1.21 K/uL Monocytes # (Auto) 0.88 K/uL Eosinophils # (Auto) 0.17 K/uL Basophils # (Auto) 0.01 K/uL Assessment & Plan Assessment: POD#5 SP LEFT ISMAEL -plan for d/c home with HHPT when medically stable. -on coumadin, with Heparin bridging q8h; INR 1.2 -Anemia - asymptomatic. will redraw h/h later today. AFib Htn Asthma CKD 3 with ARF hyponatremia DM II Plan: d/c to rehab when renal failure stabilized per medicine Change dressing to regular dressing due to skin blisters recheck H/H today. Possible need for transfusion Slight decrease in BUN/Creat; Hyponatremia - po fluid restrictions per patient after discussing with Nephro Service Narcotics dc'd. Tramadol and Tylenol only for now. As per Med Service / Nephrology Inhouse Planning Pain Management: Ultram, PO Tylenol DVT Prophylaxis: Coumadin, other (Heparin SQ) Discharge Planning Discharge Planning: home with home health ([facility] ON SATURDAY.) DVT Prophylaxis: TEDs, SCDs, Coumadin Therapy: Physical Therapy
[2016-10-23] MEDS: INSULIN ASPART 100 UNITS/ML 3 ML PEN SC SCH ×4 (09:06→21:18)
--- NOTE | 2016-10-23 09:31 | NEPHROLOGY CONSULTATION ---
DATE OF CONSULTATION: 10/23/2016 DATE OF CONSULTATION: 10/23/2016 CONSULTING PHYSICIAN: Dr. Lake. REASON FOR CONSULTATION: PATRICIA and hyponatremia. HISTORY OF PRESENT ILLNESS: This is an 81-year-old female who follows with my partner, Dr. Tamica Callahan, last seen in April of this year who has history of CKD stage III and hyponatremia as well as a history of hypertension, nephrolithiasis x1 in the , history of TIA, history of rheumatoid arthritis, sleep apnea. The patient does have a history of hyponatremia during previous hospital admissions in [place]. Sodium level did drop down into the 120s while on hydrochlorothiazide during admission in [place]. She does suffer from recurrent positive urine cultures and does see urology at [place] for renal cyst in the past, also with history of paroxysmal Afib. The patient had a creatinine of 1.6 in March of this year, thought to be in the setting of diabetes plus or minus NSAID use with hypertension and advanced age. No longer uses nonsteroidals and has had history of hyponatremia in the past while on hydrochlorothiazide. The patient has significant left hip osteoarthritis and underwent a left total hip arthroplasty on 10/18/2016. The patient's creatinine on the was 1.5, on the 1.8, on the 2.3, on the went up to 2.9 and this morning is down to 2.5. Looking over medications he did receive a dose of Nucynta, however does not appear to have received any nonsteroidal agents. Blood pressures have been relatively stable. She was mildly hypotensive into the 90s yesterday morning. However, other blood pressures throughout the hospital course been relatively stable. The patient did not receive any contrast. Renal ultrasound done on the showed a right kidney of 10.2 cm, left kidney 9.1 cm. No evidence of hydronephrosis. The patient was having some urinary retention, did have a Muir catheter placed. Urine output was very good yesterday at 1275 and has put out 775 this morning. The patient also developed mild hyponatremia. Her sodium level was in the 139 range on the 11th and went down to 137, 134, 130, 127. We stopped IV fluids and now it is trending back up and is up to 130 with a urine osmol up of 279 and a TSH of 0.6. Hemoglobin levels have been trending down as well, was 9.3 on admission and is now down to 7.6. The patient continues to have pain 8/10 at rest, 10/10 with exertion. Was also constipated, but recently had 2 BMs last night. Denies any nausea or vomiting and appears comfortable sitting out of bed to chair eating her breakfast. REVIEW OF SYSTEMS: No fevers or chills. No weight loss or weight gain, energy levels are good. No headaches, no blurry vision, no dysphagia, no shortness of breath, no chest pain, no nausea, vomiting. Positive constipation which has improved this morning. Positive urinary retention which has been resolved with Muir catheter. Positive pain in the hip. Positive swelling in the legs. Good appetite. No rash or itching. All other review of systems otherwise negative. PAST MEDICAL HISTORY: CKD stage III, followed by my partner, Dr. Tamica Callahan in [place] with baseline creatinine of 1.6. History of a TIA, sleep apnea, hypertension, AFib on Coumadin, sleep apnea with CPAP, hyperlipidemia, diabetes, rheumatoid arthritis, 1 kidney stone in the , GERD. PAST SURGICAL HISTORY: Hysterectomy, appendectomy, left knee replacement, now with a new hip replacement. SOCIAL HISTORY: Positive tobacco, quit in 1993. No alcohol, no drugs. Lives at home with . FAMILY HISTORY: no renal disease in family CURRENT MEDICATIONS: Colace 100 mg p.o. b.i.d., Coumadin 2.5 mg p.o. daily, iron 325 daily, heparin 5000 units subQ q. 8, Lantus 10 units at night, mag oxide 400 mg daily, multivitamin daily, Neurontin 300 mg p.o. b.i.d., sliding scale insulin, Pravachol 40 mg at night, prednisone 5 mg daily, Protonix 40 mg daily, calcitriol 0.25 mcg daily, levothyroxine 50 mcg daily, Singulair 10 mg at night, diltiazem 120 mg daily, Toprol-XL 100 mg daily. PHYSICAL EXAMINATION: VITAL SIGNS: Temperature 36.6, pulse 66, respiratory rate is 26, blood pressure 137/52. Satting 95% on 4 liters. GENERAL: Awake, alert, oriented x3. EYES: No scleral icterus. EARS, NOSE, THROAT: Moist mucous membranes. NECK: Supple. PULMONARY: Clear to auscultation. CARDIAC: Regular rate and rhythm. ABDOMEN: Bowel sounds positive, soft, nontender, nondistended. EXTREMITIES: No significant edema in the lower extremities, positive edema in the upper left extremity. NEUROLOGICALLY: Nonfocal, does have difficulty ambulating with recent surgery to the hip. DERM: No rash or ulcers noted. LABORATORIES: White count is 11, H&H 7.6 and 23.4, platelet count is 251. INR is 1.2. Urine osmol 279. UA shows 2+ blood, 5-10 WBCs. Sodium was 130, potassium 4.9, chloride is 98, bicarb is 25, BUN is 47, creatinine is 2.5, glucose 307, calcium is 8.3, TSH 0.639. ASSESSMENT AND PLAN: 1. Acute kidney injury on chronic kidney disease stage III with a baseline creatinine of 1.6. Appears to have had an ATN like episode with complicated urinary retention, now with a Muir catheter in place, urinating well. Creatinine appears to have peaked at 2.9 yesterday afternoon and is trending down, is 2.5 this morning. Hopefully, continues to improve, does have underlying CKD stage III from advanced age, diabetes, hypertension, history of NSAID use in the past. Vital signs appear stable. Electrolytes stable. Volume status is acceptable. No rule or indication for emergent dialysis at this time. Hopefully, creatinine continues to improve. Continue supportive measures. 2. Urinary retention. The patient does suffer from recurrent urinary tract infections; however, leukocyte esterase negative, nitrite negative. Only 5-10 WBCs, does not appear infected at this time. May have had urinary retention secondary to complications from surgery plus or minus anesthesia, plus or minus pain meds. Leave Muir catheter in for now as the patient continues to urinate well with a Muir. 3. Hyponatremia. The patient has had a history of hyponatremia during previous admissions in [facility] attributed to hydrochlorothiazide. The patient's sodium levels did drop from 139 down to 127. The patient has been trying to drink lots of water and in the setting of pain may have had an SIADH like picture. Urine osmol was 279, so may have had an element of SIADH and have stopped the normal saline. Sodium level is up to 130 this morning. I would like to place the patient on a mild fluid restriction of 1500 mL. Hold off on Lasix or salt tablets at this time. 4. Overall the patient with a complicated hospital course involving left hip arthroplasty complicated by PATRICIA and hyponatremia. Creatinine appears to have peaked and is trending down. Continue to work on pain management, hold on IV fluids and place patient on a mild fluid restriction. Hopefully, sodium levels continue to improve with mild fluid restriction and a creatinine appears to continue to trend down with a Muir catheter in place and appropriate supportive measures with good vital signs. Renal ultrasound reveals no hydro with a Muir catheter in place. Hopefully, creatinine eventually improves back down to baseline. Appreciate consultation. HOOD
[2016-10-23 10:04] LABS: HEMATOCRIT 24.4 % (37-47)
[2016-10-23] MEDS: ONDANSETRON INJ 2 MG/ML 2 ML VIAL IV PRN ×2 (10:16→16:13)
[2016-10-23 11:29] VITALS: BP 144/76; PULSE 111; TEMP 37.2; O2SAT 97
[2016-10-23 15:00] VITALS: BP 112/69; PULSE 79; TEMP 36.9; O2SAT 94
[2016-10-23] MEDS: WARFARIN SOD 2.5 MG TAB PO SCH (16:04)
[2016-10-23] MEDS: TRAMADOL HCL 50 MG TAB PO PRN (16:04)
[2016-10-23 16:27] LABS: BUN/CREATININE RATIO 18.6 (10-20); CALCIUM 8.3 mg/dl (8.5-10.1); CREATININE 2.4 mg/dl (0.60-1.20); POTASSIUM 5.4 mmol/L (3.5-5.1)
[2016-10-23] MEDS ORDERED: SODIUM POLYST. SULF SUSP 15G/60ML PO ONE (16:45)
[2016-10-23] MEDS: FERROUS SULFATE 325 MG TAB PO SCH (17:50)
--- NOTE | 2016-10-23 19:58 | Progress Note ---
Internal Med Progress Note Date of Service: Oct 23, 2016. Provider Documentation: SUBJECTIVE: sitting on the chair comfortably not ambulating much has pain at surgery site afebrile moved bowels OBJECTIVE: Vital Signs-as noted below Exam: General-alert and awake. Not in distress ENT-normal hearing Neck-no neck masses Lungs-cta b/l no wheezing or crackles Heart-s1 and s2 heard regular rhythm no murmurs Abdomen-soft bowel sounds present non tender no distension Musculoskeletal s/p left hip surgery Extremities-no edema no erythema Neuro-alert and oriented moves extremities Lab data as noted below. ASSESSMENT & PLAN: L Hip osteoarthritis s/p L Total hip arthroplasty: -POD#[address] Wasserman management as per ortho Altered Mental Status Metabolic vs toxic encephalopathy likely from acute renal failure, on Nucynta and and Dilaudid CT head unremarkable d/c Nucynta and Dilaudid for now as GFR is only 19 improved will monitor Acute Renal Failure on CKD 3 - likely pre renal received fluids holding Valsartan nephrology on board Leg Edema no dvt A fib (on coumadin): -Rate controlled. Continue beta christen Coumadin restarted Plan to follow-up in [facility] clinic upon discharge [facility] clinic already notified DM II: on iss will monitor Asthma: stable HTN: Stable on diltiazem, metoprolol DONIS: History of DONIS Hgb 8.1 today on iron supplements will Monitor H/H RASHIDA: cpap q hs Hypothyroidism: on synthroid DVT Ppx: hep sub q while inr sub therapeutic DISPOSITION as per ortho Vital Signs: Date Time Temp Pulse Resp B/P (MAP) Pulse Ox O2 Delivery O2 Flow Rate FiO2 10/23/16 16:00 Room Air 10/23/16 15:00 36.9 79 16 112/69 (83) 94 Room Air 10/23/16 11:29 37.2 111 18 144/76 (98) 97 Room Air 10/23/16 07:37 96 Room Air 10/23/16 07:30 Room Air 10/23/16 07:29 36.6 112 16 138/64 (88) 96 Room Air 10/22/16 23:04 37.0 114 16 118/76 (90) 95 CPAP 10/22/16 20:15 Room Air Lab Results: Results Past 24 Hours Test 10/22/16 20:25 8/14/17 21:04 10/22/16 21:35 10/23/16 05:13 Range/Units Sodium Level 130 130 136-145 mmol/L Potassium Level 4.8 4.9 3.5-5.1 mmol/L Chloride Level 97 98 98-107 mmol/L Carbon Dioxide Level 25 25 21-32 mmol/L Anion Gap 8.0 7.0 3-11 mmol/L Blood Urea Nitrogen 50 47 7-18 mg/dl Creatinine 2.80 2.50 0.60-1.20 mg/dl Est Creatinine Clear Calc Drug Dose 17.7 19.8 ml/min Estimated GFR () 17.6 20.2 Estimated GFR (Non- 15.2 17.4 BUN/Creatinine Ratio 17.9 18.9 10-20 Random Glucose 165 173 70-99 mg/dl Calcium Level 8.1 8.3 8.5-10.1 mg/dl Bedside Glucose 183 70-90 mg/dl Urine Color YELLOW Urine Appearance CLOUDY CLEAR Urine pH 5.5 4.5-7.5 Urine Specific [place] 1.014 1.000-1.030 Urine Protein 1+ NEG Urine Glucose (UA) NEG NEG Urine Ketones NEG NEG Urine Occult Blood 2+ NEG Urine Nitrite NEG NEG Urine Bilirubin NEG NEG Urine Urobilinogen NEG NEG Urine Leukocyte Esterase NEG NEG Urine WBC (Auto) 5-10 0-5 /hpf Urine RBC (Auto) 0-4 0-4 /hpf Urine Hyaline Casts (Auto) 1-5 0-5 /lpf Urine Epithelial Cells (Auto) >30 0-5 /lpf Urine Bacteria (Auto) 1+ NEG Urine Pathogenic Casts 0-3 GRANULAR CASTS 0 /lpf Urine Yeast (Auto) NONE PRSENT Urine Osmolality 279 500-800 mOms/kg White Blood Count 11.58 4.8-10.8 K/uL Red Blood Count 2.69 4.2-5.4 M/uL Hemoglobin 7.6 12.0-16.0 g/dL Hematocrit 23.4 37-47 % Mean Corpuscular Volume 87.0 80-100 fL Mean Corpuscular Hemoglobin 28.3 25-34 pg Mean Corpuscular Hemoglobin Concent 32.5 32-36 g/dl Platelet Count 251 130-400 K/uL Mean Platelet Volume 9.2 7.4-10.4 fL Neutrophils (%) (Auto) 80.1 % Lymphocytes (%) (Auto) 10.4 % Monocytes (%) (Auto) 7.6 % Eosinophils (%) (Auto) 1.5 % Basophils (%) (Auto) 0.1 % Neutrophils # (Auto) 9.27 1.4-6.5 K/uL Lymphocytes # (Auto) 1.21 1.2-3.4 K/uL Monocytes # (Auto) 0.88 0.11-0.59 K/uL Eosinophils # (Auto) 0.17 0-0.5 K/uL Basophils # (Auto) 0.01 0-0.2 K/uL RDW Standard Deviation 47.0 36.4-46.3 fL RDW Coefficient of Variation 14.8 11.5-14.5 % Immature Granulocyte % (Auto) 0.3 % Immature Granulocyte # (Auto) 0.04 0.00-0.02 K/uL Polychromasia 1+ Prothrombin Time 12.8 9.0-12.0 SECONDS Prothromb Time International Ratio 1.2 0.9-1.1 Thyroid Stimulating Hormone (TSH) 0.639 0.300-4.500 uIu/ml Test 10/23/16 07:58 10/23/16 09:47 10/23/16 11:53 10/23/16 15:52 Range/Units Bedside Glucose 207 247 70-90 mg/dl Hemoglobin 8.0 12.0-16.0 g/dL Hematocrit 24.4 37-47 % Sodium Level 128 136-145 mmol/L Potassium Level 5.4 3.5-5.1 mmol/L Chloride Level 97 98-107 mmol/L Carbon Dioxide Level 26 21-32 mmol/L Anion Gap 5.0 3-11 mmol/L Blood Urea Nitrogen 45 7-18 mg/dl Creatinine 2.40 0.60-1.20 mg/dl Est Creatinine Clear Calc Drug Dose 20.6 ml/min Estimated GFR () 21.2 Estimated GFR (Non- 18.3 BUN/Creatinine Ratio 18.6 10-20 Random Glucose 203 70-99 mg/dl Calcium Level 8.3 8.5-10.1 mg/dl Test 10/23/16 16:59 Range/Units Bedside Glucose 237 70-90 mg/dl
[2016-10-23] MEDS: MONTELUKAST SOD 10 MG TAB PO SCH (20:47)
[2016-10-23] MEDS: PRAVASTATIN SOD 20 MG TAB PO SCH (20:47)
[2016-10-23] MEDS: INSULIN GLARGINE SOLOSTAR 100 UNITS/ML 3 ML PEN SQ SCH (21:19)
[2016-10-23 23:38] VITALS: BP 149/68; PULSE 95; TEMP 36.8; O2SAT 96
[2016-10-24] VITALS (18 sets, daily range): BP systolic 126–165; BP diastolic 62–77; PULSE 69–95; TEMP 36.4–37.1; O2SAT 94–98
[2016-10-24] MEDS: LEVOTHYROXINE 50 MCG TAB PO SCH (06:06)
[2016-10-24] MEDS: HEPARIN SOD 5000 UNIT/0.5 ML CARP SQ SCH ×3 (06:07→21:24)
[2016-10-24 06:19] LABS: BASO % 0.1 %; BASO ABS # 0.01 K/uL (0-0.2); EOS % 1.9 %; HEMATOCRIT 22.7 % (37-47); IG% 0.5 %; LYMPH % 17.5 %; LYMPH ABS # 1.67 K/uL (1.2-3.4); MEAN CORPUSCULAR HEMOGLOBIN 27.6 pg (25-34); MEAN CORPUSCULAR HGB CONC 31.7 g/dl (32-36); MEAN PLATELET VOLUME 9.1 fL (7.4-10.4); MONO % 7.5 %; NEUT % 72.5 %; PLATELET COUNT 286 K/uL (130-400); RED BLOOD COUNT 2.61 M/uL (4.2-5.4); WHITE BLOOD COUNT 9.52 K/uL (4.8-10.8)
[2016-10-24 06:43] LABS: COMPLETE YES; POLYCHROMASIA 1+
[2016-10-24 06:55] LABS: BUN/CREATININE RATIO 19.6 (10-20); POTASSIUM 4.6 mmol/L (3.5-5.1)
[2016-10-24 07:05] LABS: CALCIUM 8.3 mg/dl (8.5-10.1)
--- NOTE | 2016-10-24 07:22 | Orthopedic Progress Note ---
Orthopedic Progress Note Date of Service Oct 24, 2016. Subjective Post OP Day: 6 Denies: chest pain, SOB, nausea / vomiting, light headedness Additional Notes: Awake, alert. Sitting in chair at bedside about to eat breakfast. States she' s having some pain in the hip this AM. Also states her right hand is not working as well as it was. Pt had fallen earlier in the week and she feels she may have "stretched the muscles" in her hand. Denies decreased sensation but having weakness in the hand. States both hands are "not good" at times. Objective N/V intact, dressing C/D/I, A&O x3, toes mobile Date Time Temp Pulse Resp B/P (MAP) Pulse Ox O2 Delivery O2 Flow Rate FiO2 10/24/16 06:49 36.7 95 15 148/70 (96) 97 Room Air 10/23/16 23:38 36.8 95 16 149/68 (95) 96 Room Air 10/23/16 23:21 CPAP 10/23/16 16:00 Room Air 10/23/16 15:00 36.9 79 16 112/69 (83) 94 Room Air 10/23/16 11:29 37.2 111 18 144/76 (98) 97 Room Air 10/23/16 07:37 96 Room Air 10/23/16 07:30 Room Air 10/23/16 07:29 36.6 112 16 138/64 (88) 96 Room Air Laboratory Results 24 Hours: Test 10/23/16 09:47 10/24/16 05:51 Hematocrit 24.4 % 22.7 % Hemoglobin 8.0 g/dL 7.2 g/dL White Blood Count 9.52 K/uL Red Blood Count 2.61 M/uL Mean Corpuscular Volume 87.0 fL Mean Corpuscular Hemoglobin 27.6 pg Mean Corpuscular Hemoglobin Concent 31.7 g/dl Platelet Count 286 K/uL Mean Platelet Volume 9.1 fL Neutrophils (%) (Auto) 72.5 % Lymphocytes (%) (Auto) 17.5 % Monocytes (%) (Auto) 7.5 % Eosinophils (%) (Auto) 1.9 % Basophils (%) (Auto) 0.1 % Neutrophils # (Auto) 6.90 K/uL Lymphocytes # (Auto) 1.67 K/uL Monocytes # (Auto) 0.71 K/uL Eosinophils # (Auto) 0.18 K/uL Basophils # (Auto) 0.01 K/uL Assessment & Plan Assessment: POD#5 SP LEFT ISMAEL -plan for d/c home with HHPT when medically stable. -on coumadin, with Heparin bridging q8h; INR pending -Anemia - asymptomatic. Hgb down to 7.2 this AM. Will discuss transfusion with Dr Rosales. AFib Htn Asthma CKD 3 with ARF - Renal fxn slowly improving hyponatremia DM II Plan: d/c to SNF when renal failure stabilized per medicine Change dressing to regular dressing due to skin blisters Possible need for transfusion Slight decrease in BUN/Creat; Hyponatremia (better this AM 135) - po fluid restrictions per patient after discussing with Nephro Service Narcotics dc'd. Tramadol and Tylenol only for now. As per Med Service / Nephrology Inhouse Planning Pain Management: Ultram, PO Tylenol DVT Prophylaxis: Coumadin, other (Heparin SQ) Discharge Planning Discharge Planning: custodial facility DVT Prophylaxis: TEDs, SCDs, Coumadin Therapy: Physical Therapy
[2016-10-24] MEDS: INSULIN ASPART 100 UNITS/ML 3 ML PEN SC SCH ×4 (07:51→21:24)
[2016-10-24] MEDS ORDERED: FUROSEMIDE INJ 20 MG in SYRINGE 0 ML IV SCH (08:00)
[2016-10-24 08:04] LABS: INR 1.3 (0.9-1.1)
[2016-10-24] MEDS: BRIMONIDINE TARTRATE-P 0.15% 5 ML BTL OPB SCH ×2 (08:13→20:36)
[2016-10-24] MEDS: MAGNESIUM OXIDE 400 MG TAB PO SCH (08:14)
[2016-10-24] MEDS: DOCUSATE SODIUM 100 MG CAP PO SCH ×2 (08:14→20:36)
[2016-10-24] MEDS: GABAPENTIN 300 MG CAP PO SCH ×2 (08:15→20:36)
[2016-10-24] MEDS: MULTIVITAMIN TAB PO SCH (08:15)
[2016-10-24] MEDS: CALCITRIOL 0.25 MCG CAP PO SCH (08:16)
[2016-10-24] MEDS: PANTOprazole SOD 40 MG TAB PO SCH (08:16)
[2016-10-24] MEDS: DILTIAZEM HCL 120 MG EXT REL CAP PO SCH (08:17)
[2016-10-24] MEDS: METOPROLOL SUCC 50MG EXT REL TAB PO SCH (08:17)
[2016-10-24] MEDS: TRAMADOL HCL 50 MG TAB PO PRN ×3 (08:36→21:26)
--- NOTE | 2016-10-24 09:24 | Nephrology Progress Note ---
Nephrology Progress Note Date of Service: Oct 24, 2016. Subjective 81 yo female with left hip replacement and continues to have significant pain who developed lu on ckd and hyponatremia with concominant urinary retention. has a aguilera in place now and on a fluid restriction. creatinine improving and sodium levels are improving as well. pt appears to be in good spirits and in room as well. Objective Date Time Temp Pulse Resp B/P (MAP) Pulse Ox O2 Delivery O2 Flow Rate FiO2 10/24/16 07:37 96 Room Air 10/24/16 07:36 36.6 94 16 142/62 (88) 96 Room Air 10/24/16 07:25 Room Air 10/24/16 06:49 36.7 95 15 148/70 (96) 97 Room Air 10/23/16 23:38 36.8 95 16 149/68 (95) 96 Room Air 10/23/16 23:21 CPAP 10/23/16 16:00 Room Air 10/23/16 15:00 36.9 79 16 112/69 (83) 94 Room Air 10/23/16 11:29 37.2 111 18 144/76 (98) 97 Room Air Physical Exam: General-aaox3 Eyes-no scleral icterus ENT-mmm Neck-supple Lungs-cta Heart-rrr Abdomen-bs+ s/nt/nd Extremities-+1 edema Neuro-nonfocal Current Inpatient Medications Medications (Trade) Dose Ordered Sig/Santos Route Start Time Stop Time Status Last Admin Dose Admin Magnesium Hydroxide (Milk Of Magnesia Susp) 30 ml Q6H PRN PO 10/18/16 10:30 11/17/16 10:29 10/21/16 13:10 30 ML Docusate Sodium (coLACE CAP) 100 mg BID PO 10/18/16 21:00 11/17/16 20:59 10/24/16 08:14 100 MG Diphenhydramine HCl (Benadryl Cap) 25 mg Q8H PRN PO 10/18/16 10:30 11/17/16 10:29 Al Hydrox/Mg Hydrox/Simethicone (Maalox Max Susp) 15 ml Q4H PRN PO 10/18/16 10:30 11/17/16 10:29 Zolpidem Tartrate (Ambien Tab) 5 mg HSZ PRN PO 10/18/16 10:30 11/17/16 10:29 Ondansetron HCl (Zofran Inj) 4 mg Q6H PRN IV 10/18/16 10:30 11/17/16 10:29 10/23/16 16:13 4 MG Pantoprazole Sodium (Protonix Tab) 40 mg QAM PO 10/19/16 09:00 11/18/16 08:59 10/24/16 08:16 40 MG Diltiazem HCl (TIAzac CAP) 120 mg QAM PO 10/19/16 09:00 11/18/16 08:59 10/24/16 08:17 120 MG Gabapentin (Neurontin Cap) 300 mg BID PO 10/18/16 21:00 11/17/16 20:59 10/24/16 08:15 300 MG Levothyroxine Sodium (Synthroid Tab) 50 mcg DAILYBB PO 10/19/16 06:00 11/18/16 05:59 10/24/16 06:06 50 MCG Magnesium Oxide (Mag-Ox Tab) 400 mg QAM PO 10/19/16 09:00 11/18/16 08:59 10/24/16 08:14 400 MG Metoprolol Succinate (Toprol Xl Tab) 100 mg QAM PO 10/19/16 09:00 11/18/16 08:59 10/24/16 08:17 100 MG Montelukast Sodium (Singulair Tab) 10 mg HS PO 10/18/16 21:00 11/17/16 20:59 10/23/16 20:47 10 MG Multivitamins (Multivitamin Tab) 1 tab QAM PO 10/19/16 09:00 11/18/16 08:59 10/24/16 08:15 1 TAB Pravastatin Sodium (Pravachol Tab) 40 mg HS PO 10/18/16 21:00 11/17/16 20:59 10/23/16 20:47 40 MG Ferrous Sulfate (Feosol Tab) 325 mg QDD PO 10/18/16 17:45 11/17/16 17:44 10/23/16 17:50 325 MG Lidocaine HCl (Xylocaine Oint 5%) 1 appln DAILY PRN EXT 10/18/16 13:30 11/17/16 13:29 Nystatin (Mycostatin Powder) 1 appln TID PRN EXT 10/18/16 13:30 11/17/16 13:29 Insulin Aspart (novoLOG ASPART) SLIDING SCALE If C... ACHS SC 10/18/16 17:15 11/17/16 17:14 10/24/16 07:51 1 UNITS Glucose (Glucose 40% Gel) 15-30 GRAMS 15 GRAMS... UD PRN PO 10/18/16 12:00 11/17/16 11:59 Glucose (Glucose Chew Tab) 4-8 Tablets 4 Tabl... UD PRN PO 10/18/16 12:00 11/17/16 11:59 Dextrose (Dextrose 50% 50ML Syringe) 25-50ML OF 50% DW IV FOR... UD PRN IV 10/18/16 12:00 11/17/16 11:59 Glucagon (Glucagon Inj) 1 mg UD PRN SQ 10/18/16 12:00 11/17/16 11:59 Albuterol (Ventolin Hfa Inhaler) 2 puffs Q6H PRN INH 10/18/16 14:00 11/17/16 13:59 Calcitriol (Rocaltrol Cap) 0.25 mcg DAILY PO 10/19/16 09:00 11/18/16 08:59 10/24/16 08:16 0.25 MCG Insulin Glargine (Lantus Solostar Pen) 10 units HS SQ 10/19/16 21:00 11/18/16 20:59 10/23/16 21:19 10 UNITS Brimonidine Tartrate (Alphagan-P 0.15% Oph Soln) 1 drops Q12 OPB 10/19/16 21:00 11/18/16 20:59 10/24/16 08:13 1 DROPS Warfarin Sodium (Coumadin Tab) 2.5 mg DAILY@16 PO 10/19/16 16:00 11/18/16 15:59 10/23/16 16:04 2.5 MG Prednisone (PredniSONE TAB) 5 mg DAILY PO 10/21/16 09:00 11/20/16 08:59 10/24/16 08:15 5 MG Heparin Sodium (Porcine) (Heparin Sq 5000 Unit/0.5ml) 5,000 unit Q8 SQ 10/22/16 14:00 11/21/16 13:59 10/24/16 06:07 5,000 UNIT Tramadol HCl (Ultram Tab) @ Q4HWA PRN PO 10/23/16 16:00 11/21/16 10:59 10/24/16 08:36 50 MG Furosemide 20 mg/ Syringe 2 ml @ 4 mls/min TODAY@0800 IV 10/24/16 08:00 10/24/16 16:00 Last 24 Hours Test 10/23/16 09:47 10/23/16 11:53 10/23/16 15:52 10/23/16 16:59 Hemoglobin 8.0 g/dL Hematocrit 24.4 % Bedside Glucose 247 mg/dl 237 mg/dl Sodium Level 128 mmol/L Potassium Level 5.4 mmol/L Chloride Level 97 mmol/L Carbon Dioxide Level 26 mmol/L Anion Gap 5.0 mmol/L Blood Urea Nitrogen 45 mg/dl Creatinine 2.40 mg/dl Est Creatinine Clear Calc Drug Dose 20.6 ml/min Estimated GFR () 21.2 Estimated GFR (Non- 18.3 BUN/Creatinine Ratio 18.6 Random Glucose 203 mg/dl Calcium Level 8.3 mg/dl Test 10/23/16 20:25 10/24/16 05:51 10/24/16 06:39 10/24/16 07:34 Bedside Glucose 234 mg/dl 135 mg/dl White Blood Count 9.52 K/uL Red Blood Count 2.61 M/uL Hemoglobin 7.2 g/dL Hematocrit 22.7 % Mean Corpuscular Volume 87.0 fL Mean Corpuscular Hemoglobin 27.6 pg Mean Corpuscular Hemoglobin Concent 31.7 g/dl Platelet Count 286 K/uL Mean Platelet Volume 9.1 fL Neutrophils (%) (Auto) 72.5 % Lymphocytes (%) (Auto) 17.5 % Monocytes (%) (Auto) 7.5 % Eosinophils (%) (Auto) 1.9 % Basophils (%) (Auto) 0.1 % Neutrophils # (Auto) 6.90 K/uL Lymphocytes # (Auto) 1.67 K/uL Monocytes # (Auto) 0.71 K/uL Eosinophils # (Auto) 0.18 K/uL Basophils # (Auto) 0.01 K/uL RDW Standard Deviation 46.2 fL RDW Coefficient of Variation 14.6 % Immature Granulocyte % (Auto) 0.5 % Immature Granulocyte # (Auto) 0.05 K/uL Polychromasia 1+ Sodium Level 135 mmol/L Potassium Level 4.6 mmol/L Chloride Level 101 mmol/L Carbon Dioxide Level 27 mmol/L Anion Gap 7.0 mmol/L Blood Urea Nitrogen 39 mg/dl Creatinine 2.00 mg/dl Est Creatinine Clear Calc Drug Dose 24.8 ml/min Estimated GFR () 26.5 Estimated GFR (Non- 22.8 BUN/Creatinine Ratio 19.6 Random Glucose 132 mg/dl Calcium Level 8.3 mg/dl Prothrombin Time 14.0 SECONDS Prothromb Time International Ratio 1.3 Assessment & Plan hyponatremia-siadh picture and currently on fluid restriction. sodium levels have normalized in the 130s now. Anemia-hg levels are trending down, getting two units of blood and 20 of iv lasix as well. lu-appears to have had atn episode and creatinine has peaked and trending down. baseline creatinine of 1.6. would leave aguilera in for now as creatinine continues to improve. hopefully will be back to baseline tomorrow.
[2016-10-24] MEDS: ONDANSETRON INJ 2 MG/ML 2 ML VIAL IV PRN (09:25)
--- NOTE | 2016-10-24 13:06 | Clinical Documentation Query ---
CLINICAL DOCUMENTATION QUERY Dr. MURRAY, In your clinical opinion is this patient being managed for: ( ) Acute blood loss anemia ( ) Other explanation of clinical findings (Please Explain) ( ) Unable to determine (Please Define) ( ) Need to Discuss ( ) Not Agree The medical record reflects the following clinical findings, treatment, and risk factors. Clinical Indicators: 81 yo female presenting with worsening L hip pain requiring L ISMAEL. Baseline Hgb 10.5/Hct 32.6 dropping as low as 7.2/22.7. Treatment:transfuse 2 U PRBC Risk Factors: surgery Please clarify and document your clinical opinion in the progress notes and discharge summary. Terms such as "probable", "suspected", "likely", "questionable", "possible", or "still to be ruled out" are acceptable. IF IN AGREEMENT, YOU MUST DOCUMENT ABOVE DIAGNOSTIC STATEMENT IN DAILY PROGRESS NOTES AND DISCHARGE SUMMARY. This document is not part of the patient's record. Thank You, Johanna Lynch, GORDON [phone]
[2016-10-24] MEDS: WARFARIN SOD 2.5 MG TAB PO SCH (16:42)
[2016-10-24] MEDS: FERROUS SULFATE 325 MG TAB PO SCH (18:32)
--- NOTE | 2016-10-24 18:43 | Progress Note ---
Internal Med Progress Note Date of Service: Oct 24, 2016. Provider Documentation: SUBJECTIVE: sitting on the chair comfortably no sob no chest pain feeling ok OBJECTIVE: Vital Signs-as noted below Exam: General-alert and awake. Not in distress ENT-normal hearing Neck-no neck masses Lungs-cta b/l no wheezing or crackles Heart-s1 and s2 heard regular rhythm no murmurs Abdomen-soft bowel sounds present non tender no distension Musculoskeletal s/p left hip surgery Extremities-no edema no erythema Neuro-alert and oriented moves extremities Lab data as noted below. ASSESSMENT & PLAN: L Hip osteoarthritis s/p L Total hip arthroplasty: -POD#[address] Wasserman management as per ortho Altered Mental Status Metabolic vs toxic encephalopathy likely from acute renal failure, on Nucynta and and Dilaudid CT head unremarkable d/c Nucynta and Dilaudid for now as GFR is only 19 improved will monitor Acute Renal Failure on CKD 3 - likely pre renal received fluids holding Valsartan cr 2.0 today. baseline cr 1.6 nephrology on board Anemia acute blood loss post op hb 7.2 today traansfusing two units prbc f/u labs. Leg Edema no dvt A fib (on coumadin): -Rate controlled. Continue beta christen Coumadin restarted Plan to follow-up in coag clinic upon discharge coag clinic already notified inr 1.3 today. DM II: on iss will monitor Asthma: stable HTN: Stable on diltiazem, metoprolol DONIS: History of DONIS Hgb 8.1 today on iron supplements will Monitor H/H RASHIDA: cpap q hs Hypothyroidism: on synthroid DVT Ppx: hep sub q while inr sub therapeutic DISPOSITION as per ortho Vital Signs: Date Time Temp Pulse Resp B/P (MAP) Pulse Ox O2 Delivery O2 Flow Rate FiO2 10/24/16 16:10 36.8 70 18 148/72 96 10/24/16 15:43 36.8 75 18 155/72 96 10/24/16 15:00 Room Air 10/24/16 14:46 36.8 69 16 127/68 97 10/24/16 14:15 36.6 76 16 132/66 96 10/24/16 13:59 36.6 75 20 126/70 94 10/24/16 13:40 37.0 71 16 130/69 95 10/24/16 13:30 37.0 71 16 130/69 95 10/24/16 12:33 36.7 75 16 130/74 98 10/24/16 11:59 36.4 79 16 128/69 96 10/24/16 11:30 37.0 82 18 141/70 97 10/24/16 11:16 36.9 85 16 136/77 97 10/24/16 10:53 36.9 92 20 145/75 10/24/16 07:37 96 Room Air 10/24/16 07:36 36.6 94 16 142/62 (88) 96 Room Air 10/24/16 07:25 Room Air 10/24/16 06:49 36.7 95 15 148/70 (96) 97 Room Air 10/23/16 23:38 36.8 95 16 149/68 (95) 96 Room Air 10/23/16 23:21 CPAP Lab Results: Results Past 24 Hours Test 10/23/16 20:25 10/24/16 05:51 10/24/16 06:39 10/24/16 07:34 Range/Units Bedside Glucose 234 135 70-90 mg/dl White Blood Count 9.52 4.8-10.8 K/uL Red Blood Count 2.61 4.2-5.4 M/uL Hemoglobin 7.2 12.0-16.0 g/dL Hematocrit 22.7 37-47 % Mean Corpuscular Volume 87.0 80-100 fL Mean Corpuscular Hemoglobin 27.6 25-34 pg Mean Corpuscular Hemoglobin Concent 31.7 32-36 g/dl Platelet Count 286 130-400 K/uL Mean Platelet Volume 9.1 7.4-10.4 fL Neutrophils (%) (Auto) 72.5 % Lymphocytes (%) (Auto) 17.5 % Monocytes (%) (Auto) 7.5 % Eosinophils (%) (Auto) 1.9 % Basophils (%) (Auto) 0.1 % Neutrophils # (Auto) 6.90 1.4-6.5 K/uL Lymphocytes # (Auto) 1.67 1.2-3.4 K/uL Monocytes # (Auto) 0.71 0.11-0.59 K/uL Eosinophils # (Auto) 0.18 0-0.5 K/uL Basophils # (Auto) 0.01 0-0.2 K/uL RDW Standard Deviation 46.2 36.4-46.3 fL RDW Coefficient of Variation 14.6 11.5-14.5 % Immature Granulocyte % (Auto) 0.5 % Immature Granulocyte # (Auto) 0.05 0.00-0.02 K/uL Polychromasia 1+ Sodium Level 135 136-145 mmol/L Potassium Level 4.6 3.5-5.1 mmol/L Chloride Level 101 98-107 mmol/L Carbon Dioxide Level 27 21-32 mmol/L Anion Gap 7.0 3-11 mmol/L Blood Urea Nitrogen 39 7-18 mg/dl Creatinine 2.00 0.60-1.20 mg/dl Est Creatinine Clear Calc Drug Dose 24.8 ml/min Estimated GFR () 26.5 Estimated GFR (Non- 22.8 BUN/Creatinine Ratio 19.6 10-20 Random Glucose 132 70-99 mg/dl Calcium Level 8.3 8.5-10.1 mg/dl Prothrombin Time 14.0 9.0-12.0 SECONDS Prothromb Time International Ratio 1.3 0.9-1.1 Test 10/24/16 12:10 10/24/16 17:07 Range/Units Bedside Glucose 212 239 70-90 mg/dl
[2016-10-24] MEDS: PRAVASTATIN SOD 20 MG TAB PO SCH (20:36)
[2016-10-24] MEDS: MONTELUKAST SOD 10 MG TAB PO SCH (20:36)
[2016-10-24] MEDS: INSULIN GLARGINE SOLOSTAR 100 UNITS/ML 3 ML PEN SQ SCH (21:23)
[2016-10-25 00:15] VITALS: O2SAT 96
[2016-10-25] MEDS: TRAMADOL HCL 50 MG TAB PO PRN (01:09)
[2016-10-25 06:03] LABS: BASO % 0.1 %; BASO ABS # 0.01 K/uL (0-0.2); COMPLETE YES; EOS % 1.4 %; HEMATOCRIT 30.7 % (37-47); IG% 0.6 %; LYMPH % 15.3 %; LYMPH ABS # 1.19 K/uL (1.2-3.4); MEAN CELL VOLUME 86.2 fL (80-100); MEAN CORPUSCULAR HEMOGLOBIN 28.1 pg (25-34); MEAN CORPUSCULAR HGB CONC 32.6 g/dl (32-36); MEAN PLATELET VOLUME 9.2 fL (7.4-10.4); MONO % 7.1 %; NEUT % 75.5 %; PLATELET COUNT 264 K/uL (130-400); RED BLOOD COUNT 3.56 M/uL (4.2-5.4); WHITE BLOOD COUNT 7.78 K/uL (4.8-10.8)
[2016-10-25] MEDS: HEPARIN SOD 5000 UNIT/0.5 ML CARP SQ SCH ×2 (06:11→13:47)
[2016-10-25] MEDS: LEVOTHYROXINE 50 MCG TAB PO SCH (06:12)
[2016-10-25 06:40] LABS: BUN/CREATININE RATIO 19.9 (10-20); CALCIUM 8.6 mg/dl (8.5-10.1); CREATININE 1.7 mg/dl (0.60-1.20); POTASSIUM 4.4 mmol/L (3.5-5.1)
[2016-10-25 07:13] LABS: INR 1.4 (0.9-1.1); PROTHROMBIN TIME (PATIENT) 14.8 SECONDS (9.0-12.0)
[2016-10-25 07:16] VITALS: BP 111/80; PULSE 94; TEMP 37.4; O2SAT 94
[2016-10-25] MEDS: BRIMONIDINE TARTRATE-P 0.15% 5 ML BTL OPB SCH (08:48)
[2016-10-25] MEDS: MULTIVITAMIN TAB PO SCH (08:49)
[2016-10-25] MEDS: DOCUSATE SODIUM 100 MG CAP PO SCH (08:49)
[2016-10-25] MEDS: MAGNESIUM OXIDE 400 MG TAB PO SCH (08:49)
[2016-10-25] MEDS: GABAPENTIN 300 MG CAP PO SCH (08:50)
[2016-10-25] MEDS: PANTOprazole SOD 40 MG TAB PO SCH (08:50)
[2016-10-25] MEDS: CALCITRIOL 0.25 MCG CAP PO SCH (08:50)
[2016-10-25 08:53] VITALS: BP 130/68; PULSE 97
[2016-10-25] MEDS: DILTIAZEM HCL 120 MG EXT REL CAP PO SCH (08:56)
[2016-10-25] MEDS: INSULIN ASPART 100 UNITS/ML 3 ML PEN SC SCH ×2 (08:56→12:44)
[2016-10-25] MEDS: METOPROLOL SUCC 50MG EXT REL TAB PO SCH (08:57)
--- NOTE | 2016-10-25 10:10 | Orthopedic Progress Note ---
Orthopedic Progress Note Date of Service Oct 25, 2016. Subjective Post OP Day: 7 Reports: feeling well, Denies: chest pain, SOB, nausea / vomiting, light headedness, calf pain Additional Notes: Feeling a little tired this AM but otherwise, no complaints. Objective calves soft nontender, N/V intact, hip located, A&O x3, toes mobile Incision with yellow serous drainage. No overt erythema. Date Time Temp Pulse Resp B/P (MAP) Pulse Ox O2 Delivery O2 Flow Rate FiO2 10/25/16 08:53 97 130/68 (88) 10/25/16 07:35 Room Air 10/25/16 07:16 37.4 94 17 111/80 (90) 94 Room Air 10/25/16 00:15 96 CPAP 10/24/16 23:07 37.1 84 16 165/68 (100) 97 CPAP 10/24/16 20:39 74 17 154/71 (98) 97 Room Air 10/24/16 16:10 36.8 70 18 148/72 96 10/24/16 15:43 36.8 75 18 155/72 96 10/24/16 15:00 Room Air 10/24/16 14:46 36.8 69 16 127/68 97 10/24/16 14:15 36.6 76 16 132/66 96 10/24/16 13:59 36.6 75 20 126/70 94 10/24/16 13:40 37.0 71 16 130/69 95 10/24/16 13:30 37.0 71 16 130/69 95 10/24/16 12:33 36.7 75 16 130/74 98 10/24/16 11:59 36.4 79 16 128/69 96 10/24/16 11:30 37.0 82 18 141/70 97 10/24/16 11:16 36.9 85 16 136/77 97 10/24/16 10:53 36.9 92 20 145/75 Laboratory Results 24 Hours: Test 10/25/16 05:15 White Blood Count 7.78 K/uL Red Blood Count 3.56 M/uL Hemoglobin 10.0 g/dL Hematocrit 30.7 % Mean Corpuscular Volume 86.2 fL Mean Corpuscular Hemoglobin 28.1 pg Mean Corpuscular Hemoglobin Concent 32.6 g/dl Platelet Count 264 K/uL Mean Platelet Volume 9.2 fL Neutrophils (%) (Auto) 75.5 % Lymphocytes (%) (Auto) 15.3 % Monocytes (%) (Auto) 7.1 % Eosinophils (%) (Auto) 1.4 % Basophils (%) (Auto) 0.1 % Neutrophils # (Auto) 5.87 K/uL Lymphocytes # (Auto) 1.19 K/uL Monocytes # (Auto) 0.55 K/uL Eosinophils # (Auto) 0.11 K/uL Basophils # (Auto) 0.01 K/uL Prothromb Time International Ratio 1.4 Prothrombin Time 14.8 SECONDS Assessment & Plan Assessment: POD#7 SP LEFT ISMAEL -plan for [facility] when ok with Med Service -on coumadin, with Heparin bridging q8h; INR 1.4 -Anemia - asymptomatic. Hgb up to 10 this AM post transfusion AFib Htn Asthma CKD 3 with ARF - Renal fxn slowly improving hyponatremia DM II Plan: d/c to SNF when renal failure stabilized per medicine Narcotics dc'd. Tramadol and Tylenol only for now. Inhouse Planning Pain Management: Ultram, PO Tylenol DVT Prophylaxis: Coumadin, other (Heparin SQ) Discharge Planning Discharge Planning: [facility] Pain Management: Ultram, PO Tylenol DVT Prophylaxis: TEDs, SCDs, Coumadin Therapy: Physical Therapy
--- NOTE | 2016-10-25 10:15 | Discharge Instructions ---
Discharge Instructions Date of Service Oct 25, 2016. Admission Reason for Admission: Left Hip Osteoarthritis Discharge Discharge Diagnosis / Problem: Left Hip Djd Discharge Goals Goal(s): Decrease discomfort, Improve function Activity Recommendations Activity Level: Assistance Required Therapies: Physical Therapy (ISMAEL protocol/precautions) Weightbearing Status: Left weightbearing (as tolerated) . Additional Information Patient informed of condition: Yes Advance Directives: No DNR: No Level of Care: Skilled Communicable Disease: No Prognosis: Stable Muir Catheter: Yes Instructions / Follow-Up Instructions / Follow-Up ACTIVITY RECOMMENDATIONS: SELF CARE INSTRUCTIONS AFTER TOTAL HIP REPLACEMENT Until the incision and soft tissues around your hip have healed, there is a possibility that the hip prosthesis could dislocate. A. Observe the following precautions to prevent dislocation: 1. Don't bend your hip greater than 90 degrees. 2. Avoid crossing your legs or ankles while standing or lying. 3. Sit with your feet placed 6 inches apart. 4. When sitting, keep your knees below your hips. Sit on a firm surface, avoid deep, soft chairs and couches. Use an elevated toilet seat in the bathroom. 5. Don't bend over at the waist. Use a long handled shoehorn and a sock aid to help you put on your shoes and socks. A transfer table operator helper can help you pickle cutter objects that are too high or too low to reach. 6. Keep car riding to a minimum for at least one month after surgery. B. Your balance may be shaky for a while. Use crutches or a walker until directed by your doctor. C. Use hand rails when walking on stairs. D. Wear low heeled shoes with non-slip soles. E. Be sure that your floors are free of things that could trip you - throw rugs , electrical cords, small objects. Avoid wet and waxed floors, especially with crutches and canes. F. Try to walk several times a day with rest periods between. G. Continue with all the exercises taught to you in the hospital. Again, make walking a part of your daily routine. SPECIAL CARE INSTRUCTIONS: VERY IMPORTANT TO READ AND REVIEW A. You may still be at risk for phlebitis and blood clots. 1. Wear surgical stockings (GIO hose) for 2 weeks after surgery to improve circulation and reduce swelling. 2. Take Aspirin 81mg twice daily for 4 weeks or as directed by your doctor. This is your blood thinner. 3. High risk patients may be prescribed a stronger blood thinner if necessary. 4. If you are on Coumadin normally, your family doctor/knit tubing dyer should monitor your blood work. Expect a phone call the day of or the day after bloodwork is drawn to adjust your dosage. B. You must take antibiotics before having dental work, bladder, bowel and other surgery. Your doctor will provide you with a permanent card to carry describing precautions. C. Call [facility] if you have a fever, redness or swelling around the incision, cloudy drainage from incision, or sudden increase in pain in your hip, not relieved by your regular pain medication. D. Please call the office at if you have any concerns or questions about your operation or recovery. * YOU MAY SHOWER, NO TUB BATHS UNTIL CLEARED BY YOUR DOCTOR. * WEAR GIO HOSE 20 HOURS PER DAY FOR 2 WEEKS. * YOU SHOULD USE A WALKER OR CRUTCHES FOR 2-4 WEEKS. THIS WILL HELP PREVENT STRAIN ON YOUR HIP MUSCLE AND ALLOW IT TO HEAL PROPERLY. YOU MAY WEAN TO A CANE TOLERATED. * MOST PATIENTS WILL HAVE HOME NURSING FOR THERAPY. IF YOU DECIDE TO DO OUTPATIENT PHYSICAL THERAPY, PLEASE SCHEDULE THIS 3 TIMES PER WEEK. * Daily dressing changes. FOLLOW UP VISIT: If appointment is not already scheduled: Please call [facility] to make a follow-up appointment for 2 weeks after your surgery at . Follow up with Primary Care Provider in 7-10 days. Current Hospital Diet Patient's current hospital diet: Diabetes Type 2 Diet, Low Potassium Diet (2g K) Discharge Diet Recommended Diet: Diabetes Type 2 Diet, Low Potassium Diet (2g K) Procedures Procedures Performed: Left Total Hip Arthroplasty Pending Studies Studies pending at discharge: no Physician Orders On Transfer Dressing Changes: Daily with 4x4's and ABD's. Call the office with increased drainage or change in drainage color, increased erythema. [phone] Vital Signs: Routine Additional Orders: Daily INR draws; CBC and BMP x 3 days DC Heparin when INR 2.0 or greater. If INR continues to remain low, call PCP to adjust Coumadin dosage. DC Muir catheter 10/27/16 Laboratory Results Hemoglobin A1c Test 09/27/16 13:55 Range/Units Estimated Average Glucose 186 mg/dl Hemoglobin A1c 8.1 H 4.5-5.6 % Medical Emergencies . Who to Call and When: Medical Emergencies: If at any time you feel your situation is an emergency, please call 911 immediately. . Non-Emergent Contact Non-Emergency issues call your: Surgeon Call Non-Emergent contact if: temperature is above 101.5, your pain is not controlled, your pain is worsening, wound has increased drainage, wound has increased redness . . "Provider Documentation" section prepared by Lopez Fleming. . Core Measure Problem Core Measures: None [place] Drug Monitoring Program Search Results: patient reviewed within database, no issues identified
[2016-10-25] MEDS ORDERED: ULT50X PO (10:19)
[2016-10-25] MEDS ORDERED: HPRIS5M SQ (12:09)
[2016-10-25] MEDS ORDERED: CMD25 PO (12:14)
[2016-10-25 12:21] VITALS: BP 130/68; PULSE 97; TEMP 37.4; O2SAT 94
--- NOTE | 2016-10-25 19:37 | Progress Note ---
Internal Med Progress Note Date of Service: Oct 25, 2016. Provider Documentation: SUBJECTIVE: sitting on the chair comfortably denies sob pain is ok ok to go to rehab today wants to keep [place] for now OBJECTIVE: Vital Signs-as noted below Exam: General-alert and awake. Not in distress ENT-normal hearing Neck-no neck masses Lungs-cta b/l no wheezing or crackles Heart-s1 and s2 heard regular rhythm no murmurs Abdomen-soft bowel sounds present non tender no distension Musculoskeletal s/p left hip surgery Extremities-no edema no erythema Neuro-alert and oriented moves extremities Lab data as noted below. ASSESSMENT & PLAN: L Hip osteoarthritis s/p L Total hip arthroplasty: -POD#[address] Wasserman management as per ortho Altered Mental Status Metabolic vs toxic encephalopathy likely from acute renal failure, on Nucynta and and Dilaudid CT head unremarkable d/c Nucynta and Dilaudid for now as GFR is only 19 improved kimberly Acute Renal Failure on CKD 3 - likely pre renal received fluids holding Valsartan cr 1.7 today. baseline cr 1.6 f/u labs wit pcp Anemia acute blood loss post op hb 7.2 today transfused two units prbc hb 10.0 today Leg Edema no dvt A fib (on coumadin): -Rate controlled. Continue beta christen Coumadin restarted Plan to follow-up in coag clinic upon discharge coag clinic already notified inr 1.4 today. f/u with Coumadin clinic. 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 will Monitor H/H RASHIDA: cpap q hs Hypothyroidism: on synthroid DVT Ppx: hep sub q while inr sub therapeutic DISPOSITION ok for discharge today Vital Signs: Date Time Temp Pulse Resp B/P (MAP) Pulse Ox O2 Delivery O2 Flow Rate FiO2 10/25/16 12:21 37.4 97 17 94 Room Air 10/25/16 08:53 97 130/68 (88) 10/25/16 07:35 Room Air 10/25/16 07:16 37.4 94 17 111/80 (90) 94 Room Air 10/25/16 00:15 96 CPAP 10/24/16 23:07 37.1 84 16 165/68 (100) 97 CPAP 10/24/16 20:39 74 17 154/71 (98) 97 Room Air Lab Results: Results Past 24 Hours Test 10/24/16 20:21 10/25/16 05:15 10/25/16 07:57 10/25/16 12:06 Range/Units Bedside Glucose 191 135 196 70-90 mg/dl White Blood Count 7.78 4.8-10.8 K/uL Red Blood Count 3.56 4.2-5.4 M/uL Hemoglobin 10.0 12.0-16.0 g/dL Hematocrit 30.7 37-47 % Mean Corpuscular Volume 86.2 80-100 fL Mean Corpuscular Hemoglobin 28.1 25-34 pg Mean Corpuscular Hemoglobin Concent 32.6 32-36 g/dl Platelet Count 264 130-400 K/uL Mean Platelet Volume 9.2 7.4-10.4 fL Neutrophils (%) (Auto) 75.5 % Lymphocytes (%) (Auto) 15.3 % Monocytes (%) (Auto) 7.1 % Eosinophils (%) (Auto) 1.4 % Basophils (%) (Auto) 0.1 % Neutrophils # (Auto) 5.87 1.4-6.5 K/uL Lymphocytes # (Auto) 1.19 1.2-3.4 K/uL Monocytes # (Auto) 0.55 0.11-0.59 K/uL Eosinophils # (Auto) 0.11 0-0.5 K/uL Basophils # (Auto) 0.01 0-0.2 K/uL RDW Standard Deviation 46.1 36.4-46.3 fL RDW Coefficient of Variation 14.7 11.5-14.5 % Immature Granulocyte % (Auto) 0.6 % Immature Granulocyte # (Auto) 0.05 0.00-0.02 K/uL Prothrombin Time 14.8 9.0-12.0 SECONDS Prothromb Time International Ratio 1.4 0.9-1.1 Sodium Level 133 136-145 mmol/L Potassium Level 4.4 3.5-5.1 mmol/L Chloride Level 98 98-107 mmol/L Carbon Dioxide Level 29 21-32 mmol/L Anion Gap 6.0 3-11 mmol/L Blood Urea Nitrogen 34 7-18 mg/dl Creatinine 1.70 0.60-1.20 mg/dl Est Creatinine Clear Calc Drug Dose 29.1 ml/min Estimated GFR () 32.2 Estimated GFR (Non- 27.8 BUN/Creatinine Ratio 19.9 10-20 Random Glucose 119 70-99 mg/dl Calcium Level 8.6 8.5-10.1 mg/dl
--- NOTE | 2016-11-08 15:30 | DISCHARGE SUMMARY ---
This is an 81-year-old female patient of Dr. Wasserman'neida complaining of chronic hip pain, longstanding, now progressively getting worse. The patient failed conservative treatment and elected to proceed with left total hip arthroplasty. PAST MEDICAL HISTORY: Hypertension, hypercholesterolemia, atrial fibrillation stable, asthma as a child, sleep apnea with use of CPAP, mini stroke, diabetes mellitus with insulin, rheumatoid arthritis, osteoarthritis, sciatica, acid reflux, obesity, kidney stones, stage III kidney disease. POSTOPERATIVE COURSE: The patient underwent a left total hip arthroplasty on 10/18/2016. She had an uncomplicated postoperative course. She did well postoperative day #1 and #2. She had an assisted fall on postoperative day #4 when she was getting into a chair to her room. A CT of her head was negative. Around the same time postoperative day #3 and 4 she developed worsening renal function on top of her already chronic renal failure. She also had increased confusion. She had increased swelling in her lower extremities. Dopplers showed negative DVT. The patient had a nephrology consult. She was to keep her Muir through her hospital stay. She had urinary retention with a negative UTI. Her fluids were restricted, all this due to likely surgical implications. She did have a decrease in her hemoglobin on postoperative day #6, where she needed 2 units of blood transfusion. Her hemoglobin stabilized on discharge at 10.0. Anticoagulation was Coumadin as per her preoperative medication. She was also put on bridging heparin due to her lower extremity edema and her low INR. Her confusion did resolve with the fluid restriction as well as the discontinuation of narcotic medications. On discharge the patient's creatinine was stable at her baseline at 1.6. Her hemoglobin was 10.0. They did restart her Coumadin and she will follow up with her Coumadin clinic as an outpatient. Again, results of nephrology consult basically results of surgical stress created the hyponatremia, fluid restriction unresolved that as well as confusion and decreased renal function which was also resolved by the time of her discharge. PHYSICAL EXAMINATION: On discharge, the left hip incision was clean, dry and intact. There was no redness or drainage. She had no calf tenderness. Negative Homans sign. Neurologically and neurovascularly she was intact in her left lower extremity. DIAGNOSES: Status post left hip total hip arthroplasty with postoperative acute on chronic kidney failure and hyponatremia, all resolved with the appropriate measures per medicine on discharge. The patient will continue with her preadmission medications. She will continue Coumadin per Coumadin clinic for her DVT prophylaxis. She was discharged to a detention facility in the form of [place] upon leaving [facility]. She will follow up with Dr. Wasserman as scheduled for postoperative appointments.
== END 2016-10-25 14:09 | DRG 469 ==
LOC: C.ACU 05:06 → C.3E 07:00 → ENRESERV 10:47
PROVIDERS: ADMIT Orthopaedic Surgery Sports Medicine; ATTEND Orthopaedic Surgery Sports Medicine
PROC: 0SRB04Z Replacement of Left Hip Joint with Ceramic on Polyethylene Synthetic Substitute, Open Approach (ICD-10-PCS; principal; 2016-10-18 07:15)
DX: M16.12 Unilateral primary osteoarthritis, left hip (principal); G93.41 Metabolic encephalopathy; N17.0 Acute kidney failure with tubular necrosis; E22.2 Syndrome of inappropriate secretion of antidiuretic hormone; D62 Acute posthemorrhagic anemia; I12.9 Hypertensive chronic kidney disease with stage 1 through stage 4 chronic kidney disease, or unspecified chronic kidney disease; E78.5 Hyperlipidemia, unspecified; I48.0 Paroxysmal atrial fibrillation; G47.30 Sleep apnea, unspecified; Z86.73 Personal history of transient ischemic attack (TIA), and cerebral infarction without residual deficits; M77.8 Other enthesopathies, not elsewhere classified; E11.9 Type 2 diabetes mellitus without complications; Z79.4 Long term (current) use of insulin; M06.9 Rheumatoid arthritis, unspecified; E66.9 Obesity, unspecified; N18.3 Chronic kidney disease, stage 3 (moderate); E03.9 Hypothyroidism, unspecified; M35.3 Polymyalgia rheumatica; Z87.891 Personal history of nicotine dependence; R33.9 Retention of urine, unspecified; R60.0 Localized edema; Z68.31 Body mass index [BMI] 31.0-31.9, adult

== ENCOUNTER → 2017-05-02 | Outpatient (CLI) | payer OTHER ==
[~2017-05-02] MED LIST changes: +CLC100 PO; +CMD25 PO; -CRAN500C2 PO; +HPRIS5M SQ; +METO100T44 PO; -METO1TAB69 PO; -SULF800T23 PO; +ULT50X PO; -WARF2.5T8 PO
[2017-05-02 17:41] LABS: BASO % 0.1 %; BASO ABS # 0.02 K/uL (0-0.2); EOS % 0.4 %; EOS ABS # 0.06 K/uL (0-0.5); HEMOGLOBIN 10.7 g/dL (12.0-16.0); IG# 0.03 K/uL (0.00-0.02); LYMPH % 9.4 %; LYMPH ABS # 1.37 K/uL (1.2-3.4); MEAN CELL VOLUME 85.8 fL (80-100); MEAN CORPUSCULAR HEMOGLOBIN 26.2 pg (25-34); MEAN CORPUSCULAR HGB CONC 30.6 g/dl (32-36); MEAN PLATELET VOLUME 10.2 fL (7.4-10.4); MONO % 4.8 %; NEUT % 85.1 %; NEUT ABS # 12.37 K/uL (1.4-6.5); PLATELET COUNT 351 K/uL (130-400); RED CELL DISTRIBUTION WIDTH CV 14.9 % (11.5-14.5); RED CELL DISTRIBUTION WIDTH SD 46.2 fL (36.4-46.3); WHITE BLOOD COUNT 14.55 K/uL (4.8-10.8)
== END | disposition home or self-care (01) ==
LOC: C.LABMFLN 12:34
PROVIDERS: ATTEND Family Medicine
DX: L03.116 Cellulitis of left lower limb (principal)

== ENCOUNTER → 2017-05-24 | Outpatient (CLI) | payer OTHER ==
[2017-05-24 12:19] LABS: BASO % 0.5 %; BASO ABS # 0.05 K/uL (0-0.2); EOS % 1.7 %; EOS ABS # 0.18 K/uL (0-0.5); HEMATOCRIT 31.8 % (37-47); IG# 0.03 K/uL (0.00-0.02); LYMPH % 28.7 %; LYMPH ABS # 3.12 K/uL (1.2-3.4); MEAN CORPUSCULAR HEMOGLOBIN 26.7 pg (25-34); MEAN CORPUSCULAR HGB CONC 31.4 g/dl (32-36); MEAN PLATELET VOLUME 9.7 fL (7.4-10.4); MONO % 6.1 %; MONO ABS # 0.66 K/uL (0.11-0.59); NEUT % 62.7 %; NEUT ABS # 6.85 K/uL (1.4-6.5); PLATELET COUNT 356 K/uL (130-400); RED CELL DISTRIBUTION WIDTH CV 15.2 % (11.5-14.5); RED CELL DISTRIBUTION WIDTH SD 47.3 fL (36.4-46.3); WHITE BLOOD COUNT 10.89 K/uL (4.8-10.8)
[2017-05-24 12:59] LABS: HEMOGLOBIN A1C 8.5 % (4.5-5.6)
[2017-05-24 13:20] LABS: ALBUMIN 2.8 gm/dl (3.4-5.0); AST/SGOT 14 U/L (15-37); BLOOD UREA NITROGEN 28 mg/dl (7-18); CALCIUM 9.4 mg/dl (8.5-10.1); CARBON DIOXIDE 29 mmol/L (21-32); CHOLESTEROL 125 mg/dl (0-200); CREATININE 1.42 mg/dl (0.60-1.20); GLUCOSE 107 mg/dl (70-99); POTASSIUM 3.5 mmol/L (3.5-5.1); SODIUM 138 mmol/L (136-145)
[2017-05-24 13:30] LABS: ALKALINE PHOSPHATASE 108 U/L (45-117); ALT/SGPT 21 U/L (12-78); LDL CHOLESTEROL CALCULATED 42 mg/dl; TOTAL PROTEIN 7.6 gm/dl (6.4-8.2); TRANSFERRIN 169 mg/dl (200-360)
== END | disposition home or self-care (01) ==
LOC: C.LABMFLN 08:24
PROVIDERS: ATTEND Family Medicine
DX: E11.9 Type 2 diabetes mellitus without complications (principal); E03.9 Hypothyroidism, unspecified; N18.3 Chronic kidney disease, stage 3 (moderate); E78.5 Hyperlipidemia, unspecified; M06.9 Rheumatoid arthritis, unspecified; I48.91 Unspecified atrial fibrillation

== ENCOUNTER → 2017-06-13 | Outpatient (CLI) | payer OTHER ==
[2017-06-13 13:09] LABS: BASO % 0.3 %; BASO ABS # 0.04 K/uL (0-0.2); EOS % 1.2 %; EOS ABS # 0.14 K/uL (0-0.5); HEMATOCRIT 31.5 % (37-47); HEMOGLOBIN 9.8 g/dL (12.0-16.0); IG# 0.03 K/uL (0.00-0.02); LYMPH % 25.9 %; LYMPH ABS # 3.04 K/uL (1.2-3.4); MEAN CELL VOLUME 84.5 fL (80-100); MEAN CORPUSCULAR HEMOGLOBIN 26.3 pg (25-34); MEAN CORPUSCULAR HGB CONC 31.1 g/dl (32-36); MEAN PLATELET VOLUME 9.7 fL (7.4-10.4); MONO % 6.8 %; NEUT % 65.5 %; NEUT ABS # 7.67 K/uL (1.4-6.5); PLATELET COUNT 358 K/uL (130-400); RED CELL DISTRIBUTION WIDTH CV 15.6 % (11.5-14.5); WHITE BLOOD COUNT 11.72 K/uL (4.8-10.8)
[2017-06-13 13:35] LABS: TRANSFERRIN 189 mg/dl (200-360)
== END | disposition home or self-care (01) ==
LOC: C.LABMFLN 09:21
PROVIDERS: ATTEND Family Medicine
DX: D50.9 Iron deficiency anemia, unspecified (principal); R70.0 Elevated erythrocyte sedimentation rate

== ENCOUNTER → 2017-07-18 | Outpatient (CLI) | payer OTHER ==
[2017-07-18 12:28] LABS: BASO % 0.3 %; BASO ABS # 0.04 K/uL (0-0.2); EOS % 1.4 %; EOS ABS # 0.19 K/uL (0-0.5); HEMATOCRIT 32.2 % (37-47); HEMOGLOBIN 9.8 g/dL (12.0-16.0); IG# 0.04 K/uL (0.00-0.02); LYMPH % 16.1 %; LYMPH ABS # 2.12 K/uL (1.2-3.4); MEAN CORPUSCULAR HEMOGLOBIN 25.3 pg (25-34); MEAN CORPUSCULAR HGB CONC 30.4 g/dl (32-36); MONO % 5.5 %; MONO ABS # 0.73 K/uL (0.11-0.59); NEUT % 76.4 %; NEUT ABS # 10.05 K/uL (1.4-6.5); PLATELET COUNT 340 K/uL (130-400); RED CELL DISTRIBUTION WIDTH CV 15.7 % (11.5-14.5); RED CELL DISTRIBUTION WIDTH SD 47.6 fL (36.4-46.3); WHITE BLOOD COUNT 13.17 K/uL (4.8-10.8)
[2017-07-18 13:24] LABS: TRANSFERRIN 155 mg/dl (200-360)
== END | disposition home or self-care (01) ==
LOC: C.LABMFLN 09:44
PROVIDERS: ATTEND Family Medicine
DX: D64.9 Anemia, unspecified (principal)